=== PATIENT | male | born 1940 | race Caucasian/White ===

== ENCOUNTER 2016-06-15 07:06 | Outpatient (CLI) | payer MEDICARE | END 2016-06-15 07:07 | disposition home or self-care (01) | DX: E78.5 Hyperlipidemia, unspecified (principal); Z79.899 Other long term (current) drug therapy ==

== ENCOUNTER 2016-08-24 07:03 | Outpatient (CLI) | payer MEDICARE | END 2016-08-24 07:04 | disposition home or self-care (01) | DX: E78.2 Mixed hyperlipidemia (principal); Z79.899 Other long term (current) drug therapy ==

== ENCOUNTER 2017-03-29 08:10 | Outpatient (CLI) | payer MEDICARE ==
[2017-03-29 12:18] LABS: BASOPHILS % (AUTO) 0.7 %; EOSINOPHILS # (AUTO) 0.2 10^3/uL (0.0-0.7); EOSINOPHILS % (AUTO) 4.8 %; HCT - HEMATOCRIT 41.7 % (42.0-52.0); HGB - HEMOGLOBIN 14.6 g/dL (14.0-18.0); LYMPHOCYTES # (AUTO) 1.3 10^3/uL (1.5-3.5); LYMPHOCYTES % (AUTO) 25.8 %; MEAN CORPUSCULAR HEMOGLOBIN 33.3 pg (27.0-31.0); MEAN CORPUSCULAR VOLUME 95.1 fL (80.0-94.0); MEAN PLATELET VOLUME 7.7 fL (7.4-11.4); MONOCYTES # (AUTO) 0.4 10^3/uL (0.0-1.0); MONOCYTES % (AUTO) 7.5 %; NEUTROPHILS % (AUTO) 61.2 %; NUCLEATED RED BLOOD CELLS AUTO 0.1 /100WBC; RED BLOOD COUNT 4.39 10^6/uL (4.70-6.10); RED CELL DISTRIBUTION WIDTH 12.9 % (12.0-15.0); UNCORRECTED WHITE BLOOD COUNT 4.9 x10^3/uL; WHITE BLOOD COUNT 4.9 x10^3/uL (4.8-10.8)
[2017-03-29 12:27] LABS: ALBUMIN/GLOBULIN RATIO 1.5 (1.0-2.2); BILIRUBIN,TOTAL 0.8 mg/dL (0.2-1.0); BUN - BLOOD UREA NITROGEN 20 mg/dL (6-20); CALCIUM 9.2 mg/dL (8.5-10.3); CARBON DIOXIDE - CO2 29 mmol/L (21-32); CHLORIDE 100 mmol/L (101-111); CHOL/HDL RATIO 4.5 (<5.0); CHOLESTEROL 272 mg/dL; GFR - MDRD 73 (>89); GLUCOSE 118 mg/dL (70-100); HDL CHOLESTEROL 61 mg/dL; LDL/HDL RATIO 3.2 (<3.6); POTASSIUM 3.9 mmol/L (3.5-5.0); SODIUM 136 mmol/L (135-145); TOTAL PROTEIN 7.6 g/dL (6.7-8.2); TRIGLYCERIDES 89 mg/dL; VLDL CHOLESTEROL 18 mg/dL
[2017-03-29 12:55] LABS: HEMOGLOBIN A1C 0.55 g/dL
== END 2017-03-29 08:11 | disposition home or self-care (01) ==
LOC: LAB.F 08:10
PROVIDERS: ATTEND Internal Medicine
DX: I10 Essential (primary) hypertension (principal); D64.9 Anemia, unspecified; R73.9 Hyperglycemia, unspecified; E78.5 Hyperlipidemia, unspecified
CPT/HCPCS: 36415; 80053; 80061; 83036; 84443; 85025

== ENCOUNTER 2017-06-14 07:31 | Outpatient (CLI) | payer MEDICARE | END 2017-06-14 07:32 | disposition home or self-care (01) | LOC: LAB.F 07:31 | PROVIDERS: ATTEND Internal Medicine | DX: E78.5 Hyperlipidemia, unspecified (principal) | CPT/HCPCS: 36415; 83721 ==

== ENCOUNTER 2017-09-27 13:21 | Day surgery (SDC) | payer MEDICARE ==
[2017-09-27] MEDS ORDERED: LACTATED RINGERS 1,000 ML IV ONE (13:53)
[2017-09-27] MEDS ORDERED: MIDAZOLAM 2 MG/2 ML VIAL IVP ONE (13:56)
[2017-09-27] MEDS ORDERED: fentaNYL 250 MCG/5 ML VIAL IVP ONE (13:56)
--- NOTE | 2017-09-27 14:07 | HISTORY & PHYSICAL EXAMINATION ---
PMH/PSH - Past Medical History Cardiovascular: positive: Hypertension, High cholesterol Respiratory: positive: Asthma, COPD, Other Endocrine/Autoimmune: positive: None GI: positive: Other : positive: None HEENT: positive: Other Psych: positive: Bipolar disorder Musculoskeletal: positive: None Derm: positive: None MRSA Hx?: No - Past Surgical History General: positive: Colonoscopy Meds/Allgy - Home Medications Home Medications: Ambulatory Orders Medication Instructions Recorded Confirmed Albuterol Sulfate [Proair Hfa 1 - 2 puffs INH Q4H PRN 03/10/16 03/10/16 Inhaler] Aspirin [Aspir-Low] 81 mg PO DAILY 03/10/16 03/10/16 Gabapentin 100 mg PO ONCE 03/10/16 03/10/16 Losartan [Cozaar] 25 mg PO DAILY 03/10/16 03/10/16 [place]-3/Dha/Epa/Fish Oil [[place] 3 1 tab PO DAILY 03/10/16 03/10/16 500 Softgel] Rosuvastatin Calcium [Crestor] 5 mg PO ONCE 03/10/16 03/10/16 [place] 160 mg PO DAILY 03/10/16 03/10/16 Ubidecarenone [Co Q-10] 100 mg PO DAILY 03/10/16 03/10/16 hydroCHLOROthiazide 25 mg PO DAILY 03/10/16 03/10/16 [Hydrochlorothiazide] - Allergies Allergies/Adverse Reactions: Allergies Allergy/AdvReac Type Severity Reaction Status Date / Time No Known Drug Allergies Allergy Verified 03/10/16 09:07 Exam - Vital Signs Vital Signs: Vital Signs x48h Temp Pulse Resp BP Pulse Ox 09/27/17 13:30 36.8 C 89 19 145/96 H 97 Impression/Plan - Problem List Problem List: Dr. Cheng Waters initially sent to 77-year-old male to my office in consultation for hematochezia back on August 03, 2017. Because the patient scheduled the procedure out more than 30 days from the time that he was evaluated this update history and physical is mandated. Since August 12 until now there have been no significant changes in his history and physical. Long story short he had a tubular adenoma removed back in 2014 and recommendation was made for repeat colonoscopy in 5 years. Additionally I have treated him in the past for anal fissures and I will relook at the area today. He describes his bowel movements as regular and normal. He denies nausea, vomiting, constipation, diarrhea, melena, hematochezia, hematemesis, abdominal pain, unexplained weight loss, or change in the color, character or caliber of his stool. His last colonoscopy was performed [address] Delia Zheng of the [facility] medical group using 2 mg of midazolam plus "EGD meds." A small sessile polyp was found in the transverse colon measuring 4 mm in size and was removed using a cold snare resection and retrieval were complete. Additionally some scattered diverticulosis was found in the sigmoid colon. Retroflexed view also showed internal hemorrhoids. The pathology on the polyp turned out to be a tubular adenoma. Current Allergies: No Known Allergies Current Meds: SUPREP BOWEL PREP KIT 17.5-3.13-1.6 GM/180ML ORAL SOLUTION (NA SULFATE-K SULFATE -MG SULF) Take one (6oz) bottle by mouth the PM before colonoscopy & one (6oz) bottle by mouth the AM of colonoscopy as directed by surgical clinic COQ10 100 MG ORAL CAPSULE (COENZYME Q10) Take 1 tab by mouth daily ASPIRIN EC 81 MG ORAL TABLET DELAYED RELEASE (ASPIRIN) Take one tablet by mouth once daily with food B-12 1000 MCG ORAL CAPSULE (CYANOCOBALAMIN) Take 1 tab by mouth daily D 1999 2000 UNIT ORAL TABLET (CHOLECALCIFEROL) Take 1 tab by mouth daily ROSUVASTATIN CALCIUM 10 MG ORAL TABLET (ROSUVASTATIN CALCIUM) Take one tablet by mouth every evening for high cholesterol LOSARTAN POTASSIUM 25 MG ORAL TABLET (LOSARTAN POTASSIUM) Take one tablet by mouth once daily for high blood pressure HYDROCHLOROTHIAZIDE 12.5 MG ORAL CAPSULE (HYDROCHLOROTHIAZIDE) Take one tablet by mouth every morning GABAPENTIN 300 MG ORAL CAPSULE (GABAPENTIN) Take one capsule by mouth twice daily Past Medical History: Bipolar disorder (ICD-296.80) (EYT36-S11.9) Diverticulosis (ICD-562.10) (FUS83-H12.90) Hyperlipidemia (ICD-272.4) (VWE25-C02.5) Asthma (ICD-493.90) (JHF59-L66.909) Hypertension Family History Summary: Mother (biol.) - Has Family History of Heart Disease - Entered On: 02/10/2016 Brother (full) - Has Family History of Diabetes - Entered On: 02/10/2016 Risk Factors: Smoked Tobacco Use: Former smoker Cigarettes: Yes Year quit: 1940 Years Since Last Quit: 78 Alcohol use: no Exercise: yes Review of Systems CONSTITUTIONAL: No weight loss, fever, chills, weakness or fatigue. HEENT: Eyes: No visual loss, blurred vision, double vision or yellow sclerae. Ears, Nose, Throat: No hearing loss, sneezing, congestion, runny nose or sore throat. SKIN: No rash or itching. CARDIOVASCULAR: No chest pain, chest pressure or chest discomfort. No palpitations or edema. RESPIRATORY: No shortness of breath, cough or sputum. GASTROINTESTINAL: No anorexia, nausea, vomiting or diarrhea. No abdominal pain or blood. GENITOURINARY: No dysuria. No impotence. NEUROLOGICAL: No headache, dizziness, syncope, paralysis, ataxia, numbness or tingling in the extremities. No change in bowel or bladder control. MUSCULOSKELETAL: No muscle, back pain, joint pain or stiffness. HEMATOLOGIC: No anemia, bleeding or bruising. LYMPHATICS: No enlarged nodes. No history of splenectomy. PSYCHIATRIC: No history of depression or anxiety. ENDOCRINOLOGIC: No reports of sweating, cold or heat intolerance. No polyuria or polydipsia. ALLERGIES: No history of asthma, hives, eczema or rhinitis. Physical Exam General: 77-year old male evaluated in Bed 3 [facility], appears stated age, well developed, well nourished, at bedside HEENT: Normocephalic, atraumatic, extraocular movement intact, mucous membranes pink and moist, sclera anicteric and not injected, male pattern baldness, [place] almost white hair Neck: Supple without pain on palpation, mass or bruit Cardiac: Regular rate and rhythm without rub, gallop, or murmur Chest: Clear to auscultation bilaterally Abdomen: Soft, nontender, normoactive bowel sounds, no hepatomegaly, no splenomegaly Genitourinary: Deferred Rectal: Deferred until colonoscopy Extremities: No gross neurovascular problem, no clubbing, cyanosis or edema Gait: No gross motor deficit Psychiatric: Alert and oriented to person place and time, asks and answers questions appropriately, mood and affect appropriate Impression & Recommendations: Screening colonoscopy with possible biopsies and/or polypectomies. Indications , procedure, alternatives (such as barium enema, Cologuard and even no procedure at all) and risks including but not limited to perforation requiring operative repair, bleeding with its risks, and were fully explained to him. In the office, I jony diagrams explaining the colonic anatomy and the proposed procedure and handed it to him. In the office, conscious sedation was discussed at length with him as were its risks including but not limited to loss of airway, aspiration, respiratory depression, and not enough relief of pain and anxiety and he indicated that he wished to have conscious sedation for his procedure. In the office, I explained that MAC anesthesia is associated with a higher incidence of colon perforation. Review of his history does not reveal any significant systemic disease that would contraindicate use of conscious sedation or MAC anesthesia. All questions were fully answered. Verbal and written consent was obtained. The patient in preparation for his colonoscopy has been n.p.o. and his colon has been mechanically prepped. 25 minutes of fugb-gn-shzu time spent with the patient the majority of which was spent in discussion and in the generation of this document
[2017-09-27 15:08] VITALS: BP 115/79
== END 2017-09-27 13:22 | disposition home or self-care (01) ==
LOC: SDS 13:21
PROVIDERS: ATTEND Surgery
PROC: 0DJD8ZZ Inspection of Lower Intestinal Tract, Via Natural or Artificial Opening Endoscopic (ICD-10-PCS; principal; 2017-09-27 14:00)
DX: K92.1 Melena (principal); K57.30 Diverticulosis of large intestine without perforation or abscess without bleeding; K64.8 Other hemorrhoids; I10 Essential (primary) hypertension; J44.9 Chronic obstructive pulmonary disease, unspecified; Z79.82 Long term (current) use of aspirin; E78.5 Hyperlipidemia, unspecified; Z87.891 Personal history of nicotine dependence; Z86.010 Personal history of colon polyps
CPT/HCPCS: 45378; J3010; J7120

== ENCOUNTER 2017-11-22 10:11 | Outpatient (CLI) | payer MEDICARE ==
--- NOTE | 2017-11-22 12:18 | XRAY Report ---
Procedure Date: 11/22/2017 Accession Number: [id number] / [id number] Procedure: FL - Modified Barium Swallow W/SP CPT Code: FULL RESULT: EXAM: Modified Barium Swallow W/SP DATE: 11/22/2017 10:50 AM CLINICAL HISTORY: DYSPHAGIA COMPARISON: None. TECHNIQUE: Under the direction of speech pathology, patient swallowed various consistencies of barium under lateral fluoroscopic observation of the neck. Fluoroscopic exposure time: 48 seconds . Number of fluoroscopic images: 1. Cine fluoroscopy recorded. FINDINGS: Airway Protection: Normal epiglottic motion. No episodes of tracheal penetration or aspiration with all consistencies of barium. Other: Zenker's diverticulum identified. Please also refer to full report from Speech Pathology. IMPRESSION: No aspiration or penetration seen. 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 RADIA
== END 2017-11-22 10:12 | disposition home or self-care (01) ==
LOC: DI 10:11
PROVIDERS: ATTEND Internal Medicine
DX: K22.5 Diverticulum of esophagus, acquired (principal)
CPT/HCPCS: 74230

== ENCOUNTER 2018-02-28 09:33 | Outpatient (CLI) | payer MEDICARE | END 2018-02-28 09:34 | disposition home or self-care (01) | LOC: RT 09:33 | PROVIDERS: ATTEND Internal Medicine | DX: J44.9 Chronic obstructive pulmonary disease, unspecified (principal) | CPT/HCPCS: 94060 ==

== ENCOUNTER 2018-04-20 07:37 | Outpatient (CLI) | payer MEDICARE ==
[2018-04-20 13:18] LABS: BASOPHILS % (AUTO) 0.1 %; EOSINOPHILS # (AUTO) 0.1 10^3/uL (0.0-0.7); EOSINOPHILS % (AUTO) 2.4 %; LYMPHOCYTES # (AUTO) 1.1 10^3/uL (1.5-3.5); LYMPHOCYTES % (AUTO) 24.3 %; MEAN CORPUSCULAR HEMOGLOBIN 34.7 pg (27.0-31.0); MEAN CORPUSCULAR HGB CONC 35.5 g/dL (32.0-36.0); MEAN CORPUSCULAR VOLUME 97.7 fL (80.0-94.0); MEAN PLATELET VOLUME 8.3 fL (7.4-11.4); MONOCYTES # (AUTO) 0.3 10^3/uL (0.0-1.0); MONOCYTES % (AUTO) 6.3 %; NEUTROPHILS # (AUTO) 3.1 10^3/uL (1.5-6.6); NEUTROPHILS % (AUTO) 66.9 %; PLT - PLATELET COUNT 196 10^3/uL (130-450); RED BLOOD COUNT 4.33 10^6/uL (4.70-6.10); RED CELL DISTRIBUTION WIDTH 12.4 % (12.0-15.0); WHITE BLOOD COUNT 4.6 x10^3/uL (4.8-10.8)
[2018-04-20 13:19] LABS: ALBUMIN 4.4 g/dL (3.2-5.5); ALBUMIN/GLOBULIN RATIO 1.3 (1.0-2.2); ALKALINE PHOSPHATASE 68 IU/L (42-121); ALT ALANINE AMINOTRANSFERASE 30 IU/L (10-60); AST ASPARTATE AMINOTRANSFERASE 29 IU/L (10-42); BILIRUBIN,TOTAL 1.2 mg/dL (0.2-1.0); BUN - BLOOD UREA NITROGEN 24 mg/dL (6-20); CALCIUM 9.1 mg/dL (8.5-10.3); CARBON DIOXIDE - CO2 29 mmol/L (21-32); CHLORIDE 100 mmol/L (101-111); CHOL/HDL RATIO 2.8 (<5.0); CHOLESTEROL 209 mg/dL; CREATININE 0.9 mg/dL (0.6-1.2); GFR - MDRD 82 (>89); GLUCOSE 127 mg/dL (70-100); HDL CHOLESTEROL 75 mg/dL; LDL CHOLESTEROL,CALCULATED 124 mg/dL; LDL/HDL RATIO 1.7 (<3.6); SODIUM 135 mmol/L (135-145); TOTAL PROTEIN 7.7 g/dL (6.7-8.2); VLDL CHOLESTEROL 10 mg/dL
[2018-04-20 13:23] LABS: HB2 TOTAL 15.8 g/dL; HEMOGLOBIN A1C 0.52 g/dL; HEMOGLOBIN A1C % 5.2 % (4.6-6.2)
== END 2018-04-20 07:38 | disposition home or self-care (01) ==
LOC: LAB.F 07:37
PROVIDERS: ATTEND Internal Medicine
DX: I10 Essential (primary) hypertension (principal); D64.9 Anemia, unspecified; R73.9 Hyperglycemia, unspecified; E78.5 Hyperlipidemia, unspecified
CPT/HCPCS: 36415; 80053; 80061; 83036; 83721; 85025

== ENCOUNTER 2020-09-02 10:13 | Outpatient (CLI) | payer MEDICARE ==
--- NOTE | 2020-09-02 17:15 | XRAY Report ---
PROCEDURE: Knee 3 View RT INDICATIONS: PAIN IN R KNEE TECHNIQUE: 3 views of the right knee(s) were acquired. COMPARISON: None. FINDINGS: Bones: No acute fractures or dislocations. Severe degenerative changes of the right knee involving a ll 3 joint compartments. There is near complete loss of the lateral compartment on weightbearing view s. Prominent marginal osteophyte formation. No suspicious bony lesions. Soft tissues: Small joint effusion. No suspicious soft tissue calcifications. Moderate vascular isatu cifications. IMPRESSION: Right knee without acute osseous abnormalities. Severe tricompartmental osteoarthrosis of the right knee with significant joint space loss of the lat eral compartment. Reviewed by: Barrington Martinez MD on 09/02/2020 4:13 PM [place] Approved by: Barrington Martinez MD on 09/02/2020 4:13 PM [place] Station ID: [id number]
== END 2020-09-02 10:14 | disposition home or self-care (01) ==
LOC: DI 10:13
PROVIDERS: ATTEND Family Medicine
DX: M17.11 Unilateral primary osteoarthritis, right knee (principal)

== ENCOUNTER 2020-11-13 12:59 | Outpatient (CLI) | payer MEDICARE ==
--- NOTE | 2020-11-13 13:58 | XRAY Report ---
PROCEDURE: Knee 3 View LT INDICATIONS: LEFT KNEE INCREASING CHRONIC PAIN NO INJURY TECHNIQUE: 3 views of the left knee(s) were acquired. COMPARISON: Contralateral right knee radiographs 09/02/2018.. FINDINGS: Bones: No fractures or dislocations. Severe joint space narrowing most pronounced in the medial comp artment. Bipartite patella bone, variant anatomy. No suspicious bony lesions. Soft tissues: No joint effusion. No suspicious soft tissue calcifications. Vascular calcifications. IMPRESSION: Severe left knee DJD most pronounced in the medial compartment. Reviewed by: Jalen Ansari MD on 11/13/2020 1:57 PM PDT Approved by: Jalen Ansari MD on 11/13/2020 1:57 PM PDT Station ID: [id number]
== END 2020-11-13 13:00 | disposition home or self-care (01) ==
LOC: DI 12:59
PROVIDERS: ATTEND Family Medicine
DX: M17.12 Unilateral primary osteoarthritis, left knee (principal)

== ENCOUNTER 2021-06-30 08:00 | Outpatient (CLI) | payer MEDICARE ==
--- NOTE | 2021-07-01 11:09 | XRAY Report ---
PROCEDURE: Humerus RT INDICATIONS: PAIN IN UPPER RIGHT ARM TECHNIQUE: 2 views of the humerus were acquired. COMPARISON: None FINDINGS: Bones: No fractures or dislocations. No suspicious bony lesions. Soft tissues: No suspicious soft tissue calcifications. IMPRESSION: No fracture. No osseous lesion. If there are persistent symptoms or continued clinical concern for pa thology, then repeat plain film radiographs (7-10 days) or advanced imaging (CT, MR, bone scan) shoul d be considered for further evaluation. Reviewed by: Terri Poe MD, PhD on 07/01/2021 11:08 AM PST Approved by: Terri Poe MD, PhD on 07/01/2021 11:08 AM [facility] Station ID: [id number]
== END 2021-06-30 23:59 | disposition home or self-care (01) ==
LOC: DI.S 08:00
PROVIDERS: ATTEND Registered Nurse
DX: M79.671 Pain in right foot (principal)

== ENCOUNTER 2021-08-26 12:03 | Emergency (ER) | payer MEDICARE | END 2021-08-26 12:22 | disposition left against medical advice (07) | LOC: ED 12:03 | DX: Z53.21 Procedure and treatment not carried out due to patient leaving prior to being seen by health care provider (principal) ==

== ENCOUNTER 2021-08-27 10:45 | Emergency (ER) | payer MEDICARE ==
[2021-08-27 10:55] VITALS: BP 147/80
--- NOTE | 2021-08-27 11:24 | XRAY Report ---
PROCEDURE: Elbow 3 View LT INDICATIONS: Trauma TECHNIQUE: 3 views of the elbow were acquired. COMPARISON: None FINDINGS: Bones: No fractures or dislocations. No suspicious bony lesions. Particular osteophyte formation a t the elbow joint is present, indicating osteoarthritis. Soft tissues: No elbow joint effusion. No suspicious soft tissue calcifications. IMPRESSION: Osteoarthritis. No acute fracture. No osseous lesion. If symptoms and/or clinical suspicion for patho logy continue, further assessment with repeat plain films, or advanced imaging (e.g., CT, MRI, or bon e scan) is recommended for further assessment. Reviewed by: Renate Hogan MD on 08/27/2021 11:22 AM PDT Approved by: Renate Hogan MD on 08/27/2021 11:22 AM PDT Station ID: [id number]
[2021-08-27] MEDS ORDERED: CLINDAMYCIN 150 MG CAPSULE PO STA (11:52)
--- NOTE | 2021-08-27 11:52 | ED Physician Documentation ---
PD HPI UPPER EXT INJURY - Stated complaint Stated Complaint: L ARM SWELLING,REDNESS - Chief complaint Chief Complaint: Ext Problem - History obtained from History obtained from: Patient - Additonal information Additional information: Very healthy 81-year-old gentleman got banged by a ladder to the posterior left elbow about 3 weeks ago and has had progressive swelling and tenderness around there. He is already on Keflex for this without improvement. He denies fevers or chills. Review of Systems Constitutional: reports: Reviewed and negative. denies: Fever, Chills Eyes: reports: Reviewed and negative Ears: reports: Reviewed and negative Musculoskeletal: denies: Neck pain, Back pain PD PAST MEDICAL HISTORY - Past Medical History Cardiovascular: Hypertension, High cholesterol Respiratory: Asthma, COPD, Other Endocrine/Autoimmune: None GI: Other : None HEENT: Other Psych: Bipolar disorder Musculoskeletal: None Derm: None - Past Surgical History General: Colonoscopy - Present Medications Home Medications: Ambulatory Orders Medication Instructions Recorded Confirmed Albuterol Sulfate [Proair Hfa 1 - 2 puffs INH Q4H PRN 03/10/16 08/27/21 Inhaler] Gabapentin 300 mg PO BID 03/10/16 08/27/21 Losartan [Cozaar] 25 mg PO DAILY 03/10/16 08/27/21 hydroCHLOROthiazide 25 mg PO DAILY 03/10/16 08/27/21 [Hydrochlorothiazide] Escitalopram [Lexapro] 10 mg PO DAILY 08/27/21 08/27/21 Tamsulosin HCl [Flomax] 0.4 mg PO DAILY PM 08/27/21 08/27/21 clindamycin HCL [Cleocin HCl] 300 mg PO QID #40 cap 08/27/21 lamoTRIgine [LaMICtal] 100 mg PO BID 08/27/21 08/27/21 - Allergies Allergies/Adverse Reactions: Allergies Allergy/AdvReac Type Severity Reaction Status Date / Time No Known Drug Allergies Allergy Verified 08/27/21 10:50 PD ED PE NORMAL - Vitals Vital signs reviewed: Yes - General General: Alert and oriented X 3, No acute distress - Extremities Extremities: Other (He has an abrasion over the left olecranon. There is no swelling or olecranon bursitis. There is cellulitis to the anteromedial forearm though with some tenderness. Slightly limited range of motion at the elbow but not consistent with a septic joint. No axillary adenopathy on the left.) - Neuro Neuro: Alert and oriented X 3, Normal speech Results - Vitals Vitals: Vital Signs - 24 hr 08/27/21 10:50 Temperature 36.8 C Heart Rate 92 Respiratory 16 Rate Blood Pressure 147/80 H O2 Saturation 98 Oxygen O2 Source Room air - Rads (name of study) Three-view x-ray of the left elbow demonstrates some osteoarthritis but no acute trauma. Radiology: EMP read contemporaneously Departure - Departure Disposition: Home, Self Care Clinical Impression: Cellulitis of left forearm Condition: Good Record reviewed to determine appropriate education?: Yes Instructions: Cellulitis Dc Prescriptions: clindamycin HCL [Cleocin HCl] 300 mg PO QID #40 cap Comments: I sent your prescription electronically to [facility] in [place]. Return if worsening or if you develop a fever. Recheck with your doctor Wednesday or Wednesday. You can stop the prior antibiotic. You confirm that the prior antibiotic was Keflex/cephalexin which is what I based the antibiotic change on.
== END 2021-08-27 12:00 | disposition home or self-care (01) ==
LOC: ED 10:45
DX: L03.114 Cellulitis of left upper limb (principal); I10 Essential (primary) hypertension
CPT/HCPCS: 73080; 99282; 99283; A9270

== ENCOUNTER 2021-10-14 11:36 | Outpatient (CLI) | payer MEDICARE ==
--- NOTE | 2021-10-14 13:25 | CT Report ---
PROCEDURE: Abdomen/Pelvis WO INDICATIONS: DIARRHEA TECHNIQUE: Noncontrast 5 mm thick sections acquired from the diaphragms to the symphysis. 5 mm coronal and sagi ttal reformats were then performed. For radiation dose reduction, the following was used: automated exposure control, adjustment of mA and/or kV according to patient size. COMPARISON: None. FINDINGS: Image quality: Excellent. ABDOMEN: Lung bases: Lung bases are clear. Heart size is normal. Solid organs: Liver and spleen are normal in size. Gallbladder is unremarkable Pancreas is normal in contours. No adrenal nodules. Kidneys are normal in size, without hydronephrosis or nephrolithia sis. Peritoneum and bowel: Unenhanced bowel loops are nonobstructed. There is a diffuse appearance of col onic thickening with inflammatory change most severe in the descending colon no appreciable inflammat ory changes noted at the terminal ileum. Very minimal diverticula are noted. No free fluid or free ai r. Nodes and vessels: No retroperitoneal or mesenteric adenopathy by size criteria. Aorta and inferior vena cava are normal in caliber. Miscellaneous: No ventral hernias. PELVIS: Genitourinary: Bladder wall thickness is normal. Miscellaneous: No inguinal hernias or adenopathy. Bones: No suspicious bony lesions. No vertebral body compression fractures. IMPRESSION: Prominent diffuse colonic thickening with inflammatory change most severe in the right colon. Overall appearance is most consistent with colitis. Given lack of significant diverticula, etiology such as infection/inflammation/ischemia should be considered. Reviewed by: Jossy Justin MD on 10/14/2021 1:23 PM PDT Approved by: Jossy Justin MD on 10/14/2021 1:23 PM PDT Station ID: [id number]
[2021-10-15] MEDS ORDERED: DIATR MEGLU/DIATRIZOATE SODIUM 120 ML BOTTLE PO ONE (07:37)
== END 2021-10-14 11:37 | disposition home or self-care (01) ==
LOC: DI 11:36
PROVIDERS: ATTEND Nurse Practitioner Family
DX: K52.9 Noninfective gastroenteritis and colitis, unspecified (principal)
CPT/HCPCS: 74176; Q9963

== ENCOUNTER 2021-12-15 11:48 | Outpatient (CLI) | payer MEDICARE | END 2021-12-15 11:49 | disposition home or self-care (01) | LOC: DI 11:48 | PROVIDERS: ATTEND Internal Medicine Cardiovascular Disease | DX: R60.9 Edema, unspecified (principal); R01.1 Cardiac murmur, unspecified; I51.7 Cardiomegaly; I77.819 Aortic ectasia, unspecified site | CPT/HCPCS: 93306 ==

== ENCOUNTER 2022-01-25 11:14 | Outpatient (CLI) | payer MEDICARE | END 2022-01-25 11:15 | disposition EMS.NT | LOC: EMS 11:14 | DX: Z03.89 Encounter for observation for other suspected diseases and conditions ruled out (principal) ==

== ENCOUNTER 2022-02-06 09:55 | Outpatient (CLI) | payer MEDICARE | END 2022-02-06 09:56 | disposition critical access hospital (66) | LOC: EMS 09:55 | DX: R53.1 Weakness (principal); R50.9 Fever, unspecified; R41.0 Disorientation, unspecified; M79.89 Other specified soft tissue disorders; R39.89 Other symptoms and signs involving the genitourinary system; W10.8XXA Fall (on) (from) other stairs and steps, initial encounter; Y92.009 Unspecified place in unspecified non-institutional (private) residence as the place of occurrence of the external cause | CPT/HCPCS: A0425; A0427 ==

== ENCOUNTER 2022-02-06 10:30 | Inpatient (IN) | payer MEDICARE ==
[2022-02-06] MEDS ORDERED: ONDANSETRON 4 MG/2 ML VIAL IVP STA (10:45)
[2022-02-06] MEDS ORDERED: ACETAMINOPHEN 325 MG TABLET PO STA ×2 (10:45→15:39)
[2022-02-06] MEDS ORDERED: IBUPROFEN 600 MG TABLET PO STA (10:45)
[2022-02-06] MEDS ORDERED: SODIUM CHLORIDE 0.9% 1,000 ML IV STA ×2 (10:45→12:11)
[2022-02-06 11:05] LABS: BASOPHILS % (AUTO) 0.1 %; HCT - HEMATOCRIT 32.6 % (42.0-52.0); HGB - HEMOGLOBIN 11.2 g/dL (14.0-18.0); LYMPHOCYTES # (AUTO) 0.2 10^3/uL (1.5-3.5); LYMPHOCYTES % (AUTO) 3.1 %; MEAN CORPUSCULAR HEMOGLOBIN 33.3 pg (27.0-31.0); MEAN CORPUSCULAR HGB CONC 34.4 g/dL (32.0-36.0); MEAN PLATELET VOLUME 8.6 fL (7.4-11.4); MONOCYTES # (AUTO) 0.3 10^3/uL (0.0-1.0); MONOCYTES % (AUTO) 3.7 %; NEUTROPHILS # (AUTO) 7.2 10^3/uL (1.5-6.6); NEUTROPHILS % (AUTO) 92.6 %; PLT - PLATELET COUNT 222 10^3/uL (130-450); RED BLOOD COUNT 3.36 10^6/uL (4.70-6.10); WHITE BLOOD COUNT 7.8 x10^3/uL (4.8-10.8)
[2022-02-06 11:18] LABS: ALBUMIN 4.1 g/dL (3.2-5.5); ALBUMIN/GLOBULIN RATIO 1.1 (1.0-2.2); BILIRUBIN,TOTAL 0.8 mg/dL (0.2-1.0); CALCIUM 9.6 mg/dL (8.5-10.3); CREATININE 1.4 mg/dL (0.6-1.2); POTASSIUM 3.7 mmol/L (3.5-5.0); TOTAL PROTEIN 7.7 g/dL (6.7-8.2)
[2022-02-06 11:54] LABS: B. PARAPERTUSSIS- RESP PCR PAN NOT DETECTED; B. PERTUSSIS- RESP PCR PANEL NOT DETECTED; C. PNEUMONIAE- RESP PCR PANEL NOT DETECTED; CORONAVIRUS 229E-RESP PCR NOT DETECTED; CORONAVIRUS HKU1-RESP PCR NOT DETECTED; CORONAVIRUS NL63-RESP PCR NOT DETECTED; CORONAVIRUS OC43-RESP PCR NOT DETECTED; HUMAN METAPNEUMOVIRUS NOT DETECTED; INFLUENZA A- RESP PCR PANEL NOT DETECTED; INFLUENZA B - RESP PCR PANEL NOT DETECTED; M. PNEUMONIAE- RESP PCR PANEL NOT DETECTED; PARAINFLUENZA VIRUS 1 NOT DETECTED; PARAINFLUENZA VIRUS 2 NOT DETECTED; PARAINFLUENZA VIRUS 3 NOT DETECTED; PARAINFLUENZA VIRUS 4 NOT DETECTED; RHINOVIRUS/ENTEROVIRUS NOT DETECTED; RSV- RESP PCR PANEL NOT DETECTED; SARS-CoV-2 -RESP PCR PANEL NOT DETECTED
--- NOTE | 2022-02-06 12:08 | CT Report ---
PROCEDURE: HEAD WO INDICATIONS: aloc TECHNIQUE: Noncontrast 4.5 mm thick angled axial sections acquired from the foramen magnum to the vertex. For r adiation dose reduction, the following was used: automated exposure control, adjustment of mA and/or kV according to patient size. COMPARISON: None. FINDINGS: Image quality: Excellent. The ventricular system and cortical sulci demonstrate atrophy, consistent for patient's stated age. There are areas of hypodensity in the periventricular and subcortical white matter. There is no acut e intra or extra-axial fluid collection. No acute hemorrhage, mass lesion or midline shift. Brainst em is unremarkable. Globes are symmetrical. Sinuses demonstrate minimal mucosal thickening. Partially visualized small mu cous retention cyst versus polyp is present in the right maxillary sinus. Osseous structures are inta ct. IMPRESSION: 1. No acute intracranial process. 2. Mild to moderate atrophy and chronic microvascular ischemic changes. Reviewed by: Jossy Justin MD on 02/06/2022 12:06 PM PDT Approved by: Jossy Justin MD on 02/06/2022 12:06 PM PDT Station ID: [id number]
[2022-02-06 14:00] LABS: BILIRUBIN,URINE NEGATIVE (NEGATIVE); GLUCOSE, URINE (UA) NEGATIVE (NEGATIVE); KETONES,URINE (UA) NEGATIVE (NEGATIVE); LEUKOCYTE ESTERASE, URINE NEGATIVE (NEGATIVE); NITRITE,URINE NEGATIVE (NEGATIVE); OCCULT BLOOD,URINE LARGE (NEGATIVE); PROTEIN,URINE 30 mg/dL (NEGATIVE); UROBILINOGEN,URINE 0.2 (NORMAL) E.U./dL (NORMAL)
[2022-02-06 14:03] LABS: CLARITY,URINE HAZY (CLEAR)
[2022-02-06 14:13] LABS: BACTERIA,URINE Rare /HPF (None Seen); MUCUS,URINE Moderate Strands; RBC,URINE 0-5 /HPF (0-5); SQUAMOUS EPITHELIAL CELL,UR RARE Squamous (<= Few); WBC,URINE 0-3 /HPF (0-3)
--- NOTE | 2022-02-06 14:17 | XRAY Report ---
PROCEDURE: Chest 1 View X-Ray INDICATIONS: chest pain TECHNIQUE: One view of the chest was acquired. COMPARISON: None FINDINGS: Surgical changes and devices: None. Lungs and pleura: No pleural effusions or pneumothorax. Lungs are clear. Mediastinum: Mediastinal contours appear normal. Heart size is enlarged. Bones and chest wall: No suspicious bony lesions. Overlying soft tissues appear unremarkable. IMPRESSION: No acute pulmonary process. Reviewed by: Jossy Justin MD on 02/06/2022 2:16 PM PDT Approved by: Jossy Justin MD on 02/06/2022 2:16 PM PDT Station ID: [id number]
[2022-02-06] MEDS ORDERED: cefTRIAXone 2 GM in SODIUM CHLORIDE 0.9% MINIBAG 100 ML IV STA (15:39)
--- NOTE | 2022-02-06 17:16 | ED Physician Documentation ---
PD HPI ALTERED MENTAL STATUS - Stated complaint Stated Complaint: AMS - Chief complaint Chief Complaint: Fever - History obtained from History obtained from: Patient, Friend, EMS - Additional information Additional information: Patient sent to the emergency department by EMS for chief complaint of altered mental status for the last couple of days, falls, and fever. The patient's friend Rosa, on whose property he lives, states that he has not seen like himself for the last couple of days. He seems somewhat confused and like he was not as steady on his feet as usual. Rosa called EMS and they were unable to get the stretcher into the patient small cabin, so the patient had to walk downstairs to the stretcher, which she thought he could do. However, while walking, he fell. The medics were able to catch him and he was not injured, but he was not strong enough to continue walking. The medics state they got a temperature in route of 104. His blood sugar was normal. Medics did note the patient vomited in route. The patient denies any specific complaints. He states he feels like he is just cold all the time, but denies any nausea, vomiting, cough, shortness of breath, abdominal pain, or chest pain. He has some swelling of his right lower extremity which he states he has already had evaluated on a couple of occasions and does not have a DVT. He states the color and size of the leg are at baseline. No sore throat or rhinorrhea. No other complaints at this time. Review of Systems Ten Systems: 10 systems reviewed and negative Constitutional: reports: Fever, Chills Eyes: reports: Reviewed and negative Ears: reports: Reviewed and negative Nose: reports: Reviewed and negative Throat: reports: Reviewed and negative Cardiac: reports: Reviewed and negative Respiratory: reports: Reviewed and negative GI: reports: Reviewed and negative : reports: Reviewed and negative Skin: reports: Reviewed and negative Musculoskeletal: reports: Reviewed and negative Neurologic: reports: Generalized weakness Psychiatric: reports: Reviewed and negative Endocrine: reports: Reviewed and negative Immunocompromised: reports: Reviewed and negative PD PAST MEDICAL HISTORY - Past Medical History Past Medical History: Yes Cardiovascular: Hypertension, High cholesterol Respiratory: Asthma, COPD, Other Endocrine/Autoimmune: None GI: Other : None HEENT: Other Psych: Bipolar disorder Musculoskeletal: None Derm: None - Past Surgical History General: Colonoscopy - Present Medications Home Medications: Ambulatory Orders Medication Instructions Recorded Confirmed Albuterol Sulfate [Proair Hfa 1 - 2 puffs INH Q4H PRN 03/10/16 10/25/21 Inhaler] Escitalopram [Lexapro] 10 mg PO DAILY 08/27/21 10/25/21 Tamsulosin HCl [Flomax] 0.4 mg PO DAILY PM 08/27/21 10/25/21 lamoTRIgine [LaMICtal] 100 mg PO BID 08/27/21 10/25/21 Gabapentin [Neurontin] 300 mg PO QPM 10/25/21 10/25/21 Tadalafil [Cialis] 5 - 20 mg PO DAILY PRN 10/25/21 10/25/21 Meloxicam [Mobic] 15 mg PO DAILY PRN #15 tab 11/03/21 Potassium Chloride [K-Dur] 40 meq PO DAILYWM #8 tablet 11/03/21 Psyllium [Metamucil] 1 packet PO DAILY #7 packet 11/03/21 Simethicone [Mylicon] 80 mg PO 0900,1300,1800,2100 PRN 11/03/21 #16 tablet Vancomycin [Vancocin] 125 mg PO QID #16 cap 11/03/21 Zinc Sulfate 220 mg PO DAILY 11/03/21 - Allergies Allergies/Adverse Reactions: Allergies Allergy/AdvReac Type Severity Reaction Status Date / Time No Known Drug Allergies Allergy Verified 10/24/21 12:11 - Social History Does the pt smoke?: No Smoking Status: Never smoker Does the pt drink ETOH?: Yes Does the pt have substance abuse?: No PD ED PE NORMAL - Vitals Vital signs reviewed: Yes - General General: No acute distress, Well developed/nourished, Other (The patient is oriented to self. He knows he is at the hospital. He is not sure what year it is.) - HEENT HEENT: Atraumatic, PERRL, EOMI, Moist mucous membranes - Neck Neck: Supple, no meningeal sign - Cardiac Cardiac: RRR, No murmur, Strong equal pulses - Respiratory Respiratory: No respiratory distress, Clear bilaterally - Abdomen Abdomen: Soft, Non tender, Non distended - Derm Derm: Normal color, Warm and dry, No rash - Extremities Extremities: No deformity, Other (1+ pitting edema right lower leg. No calf tenderness. 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, Normal speech - Psych Psych: Normal mood, Normal affect Results - Vitals Vitals: Vital Signs - 24 hr 02/06/22 02/06/22 02/06/22 10:37 11:11 12:54 Temperature 40.2 C H 37.2 C Heart Rate 105 H 106 H 94 Respiratory 27 H 29 H 18 Rate Blood Pressure 160/90 H 156/89 H 120/65 O2 Saturation 97 93 95 02/06/22 02/06/22 14:00 15:50 Temperature 36.3 C L Heart Rate 73 63 Respiratory 17 13 Rate Blood Pressure 122/66 120/77 O2 Saturation 96 99 Oxygen O2 Source Room air - EKG (time done) 1036 Rate: Rate (enter#) Rhythm: Sinus tachycardia [place]: Normal Intervals: Prolonged CT (borderline) QRS: LVH Ischemia: Normal ST segments Compare to prior EKG: Old EKG unavailable Computer interpretation: Agree with computer - Labs Labs: Laboratory Tests 02/06/22 02/06/22 02/06/22 10:52 10:52 10:52 WBC 7.8 RBC 3.36 L Hgb 11.2 L Hct 32.6 L MCV 97.0 H MCH 33.3 H MCHC 34.4 RDW 13.0 Plt Count 222 MPV 8.6 Neut # (Auto) 7.2 H Lymph # (Auto) 0.2 L [place] # (Auto) 0.3 Eos # (Auto) 0.0 Baso # (Auto) 0.0 Absolute Nucleated RBC 0.00 Nucleated RBC % 0.0 Sodium 136 Potassium 3.7 Chloride 98 L Carbon Dioxide 27 Anion Gap 11.0 BUN 31 H Creatinine 1.4 H Estimated GFR (MDRD) 49 L Glucose 155 H Lactic Acid 2.3 H Calcium 9.6 Total Bilirubin 0.8 AST 41 ALT 20 Alkaline Phosphatase 62 Total Protein 7.7 Albumin 4.1 Globulin 3.6 Albumin/Globulin Ratio 1.1 Lipase 27 Urine Color Urine Clarity Urine pH Ur Specific [place] Urine Protein Urine Glucose (UA) Urine Ketones Urine Occult Blood Urine Nitrite Urine Bilirubin Urine Urobilinogen Ur Leukocyte Esterase Urine RBC Urine WBC Ur Squamous Epith Cells Urine Bacteria Urine Mucus Ur Microscopic Review Urine Culture Comments Nasal Adenovirus (PCR) Nasal B. parapertussis DNA (PCR) Nasal Coronavir 229E PCR Nasal Coronavir HKU1 PCR Nasal Coronavir NL63 PCR Nasal Coronavir OC43 PCR Nasal Enterovir/Rhinovir PCR Nasal Influenza B PCR Nasal Influenza A PCR Nasal Parainfluen 1 PCR Nasal Parainfluen 2 PCR Nasal Parainfluen 3 PCR Nasal Parainfluen 4 PCR Nasal RSV (PCR) Nasal B.pertussis DNA PCR Nasal C.pneumoniae (PCR) Galo Human Metapneumo PCR Nasal M.pneumoniae (PCR) Nasal SARS-CoV-2 (PCR) Ethyl Alcohol 02/06/22 02/06/22 02/06/22 10:52 10:55 13:45 WBC RBC Hgb Hct MCV MCH MCHC RDW Plt Count MPV Neut # (Auto) Lymph # (Auto) [place] # (Auto) Eos # (Auto) Baso # (Auto) Absolute Nucleated RBC Nucleated RBC % Sodium Potassium Chloride Carbon Dioxide Anion Gap BUN Creatinine Estimated GFR (MDRD) Glucose Lactic Acid Calcium Total Bilirubin AST ALT Alkaline Phosphatase Total Protein Albumin Globulin Albumin/Globulin Ratio Lipase Urine Color YELLOW Urine Clarity HAZY Urine pH 6.0 Ur Specific [place] 1.025 Urine Protein 30 H Urine Glucose (UA) NEGATIVE Urine Ketones NEGATIVE Urine Occult Blood LARGE H Urine Nitrite NEGATIVE Urine Bilirubin NEGATIVE Urine Urobilinogen 0.2 (NORMAL) Ur Leukocyte Esterase NEGATIVE Urine RBC 0-5 Urine WBC 0-3 Ur Squamous Epith Cells RARE Squamous Urine Bacteria Rare Urine Mucus Moderate Strands Ur Microscopic Review INDICATED Urine Culture Comments NOT INDICATED Nasal Adenovirus (PCR) NOT DETECTED Nasal B. parapertussis DNA (PCR) NOT DETECTED Nasal Coronavir 229E PCR NOT DETECTED Nasal Coronavir HKU1 PCR NOT DETECTED Nasal Coronavir NL63 PCR NOT DETECTED Nasal Coronavir OC43 PCR NOT DETECTED Nasal Enterovir/Rhinovir PCR NOT DETECTED Nasal Influenza B PCR NOT DETECTED Nasal Influenza A PCR NOT DETECTED Nasal Parainfluen 1 PCR NOT DETECTED Nasal Parainfluen 2 PCR NOT DETECTED Nasal Parainfluen 3 PCR NOT DETECTED Nasal Parainfluen 4 PCR NOT DETECTED Nasal RSV (PCR) NOT DETECTED Nasal B.pertussis DNA PCR NOT DETECTED Nasal C.pneumoniae (PCR) NOT DETECTED Galo Human Metapneumo PCR NOT DETECTED Nasal M.pneumoniae (PCR) NOT DETECTED Nasal SARS-CoV-2 (PCR) NOT DETECTED Ethyl Alcohol < 5.0 02/06/22 15:55 WBC RBC Hgb Hct MCV MCH MCHC RDW Plt Count MPV Neut # (Auto) Lymph # (Auto) [place] # (Auto) Eos # (Auto) Baso # (Auto) Absolute Nucleated RBC Nucleated RBC % Sodium Potassium Chloride Carbon Dioxide Anion Gap BUN Creatinine Estimated GFR (MDRD) Glucose Lactic Acid 1.0 Calcium Total Bilirubin AST ALT Alkaline Phosphatase Total Protein Albumin Globulin Albumin/Globulin Ratio Lipase Urine Color Urine Clarity Urine pH Ur Specific [place] Urine Protein Urine Glucose (UA) Urine Ketones Urine Occult Blood Urine Nitrite Urine Bilirubin Urine Urobilinogen Ur Leukocyte Esterase Urine RBC Urine WBC Ur Squamous Epith Cells Urine Bacteria Urine Mucus Ur Microscopic Review Urine Culture Comments Nasal Adenovirus (PCR) Nasal B. parapertussis DNA (PCR) Nasal Coronavir 229E PCR Nasal Coronavir HKU1 PCR Nasal Coronavir NL63 PCR Nasal Coronavir OC43 PCR Nasal Enterovir/Rhinovir PCR Nasal Influenza B PCR Nasal Influenza A PCR Nasal Parainfluen 1 PCR Nasal Parainfluen 2 PCR Nasal Parainfluen 3 PCR Nasal Parainfluen 4 PCR Nasal RSV (PCR) Nasal B.pertussis DNA PCR Nasal C.pneumoniae (PCR) Galo Human Metapneumo PCR Nasal M.pneumoniae (PCR) Nasal SARS-CoV-2 (PCR) Ethyl Alcohol - Rads (name of study) Chest x-ray Radiology: Final report received, EMP read indepedently, See rad report (Negative) PD MEDICAL DECISION MAKING - ED course Complexity details: reviewed results, re-evaluated patient, considered differential, d/w patient, other ED course: The patient was treated with Zofran, Tylenol and ibuprofen and worked up with labs, EKG, chest x-ray, urinalysis, respiratory PCR, and blood cultures. His EKG showed mild sinus tachycardia but otherwise unremarkable. His chest x-ray is negative. PCR panel was completely negative. His white blood cell count was normal and labs were otherwise unremarkable. Urinalysis showed some blood but otherwise unremarkable. The patient was given a total of 2 L of 0.9 normal saline before he was able to urinate. His vital signs did normalize after this and treatment with Tylenol and ibuprofen. The patient's lactic acid level initially was 2.3 but after fluids, he improved to 1.0. His mental status improved to the point of being oriented to self, place, including knowing that this was [facility] in [place], the year, and the president. He was able to shuffle to the bathroom and toilet himself without assistance and then shuffled back, which apparently is his normal gait. However, when not actively heavily stimulated, the patient was extremely drowsy and difficult to arouse. At first, the patient stated that he wanted to go home, and since he was fully oriented and in anticipation of him potentially leaving, I did give him a dose of Rocephin 2 g IV, given the height of his fever, his delirium, and is pending blood cultures. However, on reevaluation, the patient was still so heavily drowsy I did not feel that given the minimal support and the likely heavy needs of the patient, it would be safe for him to go home. I discussed the situation with Dr. Ellis, who felt that he could be admitted on an observation basis for altered mental status, pending blood cultures. The patient was agreeable to this plan. I have started him on more IV fluids and have given him another dose of Tylenol. Departure - Departure Disposition: ED Place in Observation Clinical Impression: Fever Qualifiers: Fever type: unspecified Qualified Code(s): R50.9 - Fever, unspecified Altered mental status Qualifiers: Altered mental status type: delirium Qualified Code(s): R41.0 - Disorientation, unspecified Condition: Serious
[2022-02-06] MEDS ORDERED: ACETAMINOPHEN 325 MG TABLET PO PRN (17:22)
[2022-02-06] MEDS ORDERED: SODIUM CHLORIDE FLUSH 0.9% 10 ML SYRINGE IVP PRN (17:22)
--- NOTE | 2022-02-06 18:13 | HISTORY & PHYSICAL EXAMINATION ---
Chief Complaint - Chief Complaint Chief Complaint: German Quiñonez noted that he is confused History of Present Illness - Admitted From Admitted From:: ED - History Obtained From History obtained from: ED provider and chart review - History of Present Illness HPI Comment/Other: This is a 81 y/o white male patient who was brought to the emergency department by EMS for chief complaint of altered mental status for the last couple of days, falls, and fever. The patient's friend Rosa, on whose property he lives, states that he "has not been like himself" for the last couple of days. He seems somewhat confused and like he was not as steady on his feet as usual. Rosa called EMS and they were unable to get the stretcher into the patient small cabin, so the patient had to walk downstairs to the stretcher, which she thought he could do. However, while walking, he fell. The medics were able to catch him and he was not injured, but he was not strong enough to continue walking. The medics state they got a temperature in route of 104. His blood sugar was normal. Medics did note the patient vomited in route. The patient denies any specific complaints. He states he feels like he is just cold all the time, but denies any nausea, vomiting, cough, shortness of breath, abdominal pain, or chest pain. He has some swelling of his right lower extremity which he states he has already had evaluated on a couple of occasions and does not have a DVT. He told the ER Provider that the color and size of the leg are at baseline, and denied a sore throat or rhinorrhea. He had no other complaints in the ED. For me, he is sound asleep and does not remain awake enough to complete a sentence. Patient has a history of bipolar disorder and PTSD. He was admitted here 3 months ago for sepsis from C. difficile colitis source. He had multiple electrolyte abnormalities and was orthostatic for many days. He was confused then, when blood pressure was low, and at that admission all his blood pressure medications were discontinued. History - Past Medical History Cardiovascular: reports: Hypertension, High cholesterol Respiratory: reports: Asthma, COPD, Other Endocrine/Autoimmune: reports: None GI: reports: Other : reports: None HEENT: reports: Other Psych: reports: Bipolar disorder Musculoskeletal: reports: None Derm: reports: None MRSA Hx?: No - Past Surgical History General: reports: Colonoscopy - Family & Social History Family History: Mother: Alive and Well, Father: Alive and Well Family History Comment/Other: No diseases run in the family. He has several sandi wn children. 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 He never smoked and rarely drinks alcohol. - Substance History Use: Uses substance without health or social issues: NONE Meds/Allgy - Home Medications Home Medications: Ambulatory Orders Medication Instructions Recorded Confirmed Albuterol Sulfate [Proair Hfa 1 - 2 puffs INH Q4H PRN 03/10/16 10/25/21 Inhaler] Escitalopram [Lexapro] 10 mg PO DAILY 08/27/21 10/25/21 Tamsulosin HCl [Flomax] 0.4 mg PO DAILY PM 08/27/21 10/25/21 lamoTRIgine [LaMICtal] 100 mg PO BID 08/27/21 10/25/21 Gabapentin [Neurontin] 300 mg PO QPM 10/25/21 10/25/21 Tadalafil [Cialis] 5 - 20 mg PO DAILY PRN 10/25/21 10/25/21 Meloxicam [Mobic] 15 mg PO DAILY PRN #15 tab 11/03/21 Potassium Chloride [K-Dur] 40 meq PO DAILYWM #8 tablet 11/03/21 Psyllium [Metamucil] 1 packet PO DAILY #7 packet 11/03/21 Simethicone [Mylicon] 80 mg PO 0900,1300,1800,2100 PRN 11/03/21 #16 tablet Vancomycin [Vancocin] 125 mg PO QID #16 cap 11/03/21 Zinc Sulfate 220 mg PO DAILY 11/03/21 - Allergies Allergies/Adverse Reactions: Allergies Allergy/AdvReac Type Severity Reaction Status Date / Time No Known Drug Allergies Allergy Verified 10/24/21 12:11 Review of Systems - Constitutional Constitutional: reports: Fatigue, Weakness - Gastrointestinal Gastrointestinal: reports: Vomiting (described today by EMS) - All Other Systems All Other Systems: reports: Other (No details about any other symptoms or known since he is confused and somnolent) Exam - Vital Signs Vital Signs: Vital Signs x48h Temp Pulse Pulse Resp BP BP Pulse Ox 02/06/22 18:11 36.3 C L 57 L 18 124/66 95 02/06/22 17:30 36.2 C L 95 13 105/62 95 02/06/22 15:50 36.3 C L 63 13 120/77 99 02/06/22 14:00 73 17 122/66 96 02/06/22 12:54 37.2 C 94 18 120/65 95 02/06/22 11:11 106 H 29 H 156/89 H 93 02/06/22 10:37 40.2 C H 105 H 27 H 160/90 H 97 - Physical Exam General Appearance: positive: Lethargic (Asleep, snoring, is in no distress, awakens to name or to touch and quickly falls asleep again) Eyes Bilateral: positive: No lid inflammation ENT: positive: ENT inspection nml, No signs of dehydration Neck: positive: Nml inspection, Thyroid nml, No JVD Respiratory: positive: No respiratory distress, Breath sounds nml Cardiovascular: positive: Regular rate & rhythm, Other (Heart sounds are distant over his snoring breath sounds) Abdomen: positive: Non-tender, No distention Skin: positive: Warm, Dry Extremities: positive: Non-tender, No pedal edema Neurologic/Psychiatric: positive: Other (Lethargic, Babinski are neg. He awakens to name or to touch and quickly falls back asleep, cannot continue a conversation) Conclusion/Plan - Problem List (1) Altered mental status Conclusion/Plan: A CT scan of the head was done that showed no striking abnormalities, microangiopathic changes of aging were seen. Please see room screen for alcohol was negative but no M UDS toxicology screen was done, and his home medications do have Lamictal and gabapentin which could be over-sedating. The likely cause of the mental status change is his high fever, but we have no obvious source to treat. The patient will be placed in Observation status, neurochecks will be ordered every 4 hours. Qualifiers: Qualified Code(s): R41.0 - Disorientation, unspecified (2) FUO (fever of unknown origin) Conclusion/Plan: He did have a fever of 104. He has a normal white blood count and only borderline elevated lactic acid level. Chest x-ray is normal and urinalysis is unremarkable. He had vomiting witnessed, but no other constitutional symptoms to localize a source of his fever. He will be placed in Observation status. Await blood culture results. Continue IV fluids He received empiric ceftriaxone in the ED. Without an obvious source of infection, no continuation of IV antibiotics is being ordered now. Because he had colitis 3 months ago and had vomiting witnessed today, an abdominal CT scan will be ordered. (3) JOEL (acute kidney injury) Conclusion/Plan: Likely from volume depletion related to the fever. He may also have had poor oral intake if he has been confused for several days. Will continue IV fluids. Avoid nephrotoxins. Follow BMP daily. - Lab Results Fish Bones: 02/06/22 10:52 02/06/22 10:52 - Diagnostic Imaging Results Diagnostic Imaging Results: positive: Final report reviewed
[2022-02-06] MEDS: DEXTROSE 5%-0.9% NACL 1,000 ML IV SCH (18:24)
[2022-02-06] MEDS ORDERED: MIN OIL/DIMETHICON/COCONUT OIL 92 GM TUBE TOP PRN (18:58)
[2022-02-06 20:09] LABS: MUDS CUTOFF CONCENTRATIONS CUTOFF CONC BELOW:
--- NOTE | 2022-02-06 20:16 | CT Report ---
PROCEDURE: Abdomen/Pelvis WO INDICATIONS: Fever, vomiting, recent C.diff colitis TECHNIQUE: Noncontrast 5 mm thick sections acquired from the diaphragms to the symphysis. 5 mm coronal and sagi ttal reformats were then performed. For radiation dose reduction, the following was used: automated exposure control, adjustment of mA and/or kV according to patient size. COMPARISON: CT abdomen pelvis 10/24/2021. FINDINGS: Image quality: There is mild motion artifact. Lung bases:There is dependent atelectasis and scarring the lung bases. Heart: Heart is normal in size. There is a small hiatal hernia. ABDOMEN: Liver: No mass lesion. Gallbladder: Within normal limits without calcified gallstones. Biliary ducts: No biliary ductal dilatation. Pancreas: Unremarkable. Spleen: Normal in size. Adrenal Glands: No adrenal nodules. Kidneys and Ureters: No hydronephrosis. Stomach and Bowel: Stomach and small bowel loops are normal in caliber and wall thickness. The appen shanice is normal in appearance. There is mild to moderate stool distention throughout the colon suggesti ve of constipation. No colonic wall thickening or paracolonic fat stranding to suggest an acute colit is. There is colonic diverticulosis without acute diverticulitis. Peritoneum:There is a small amount of free fluid in the pelvis and left paracolic gutter which are n onspecific and may be reactive. No free air. Ventral Wall: No hernia. Abdominal Nodes: No retroperitoneal or mesenteric adenopathy by size criteria. Vessels: Aorta and inferior vena cava are normal in size. PELVIS: Pelvic Organs: Unremarkable. Bladder: Unremarkable. Pelvic Nodes: No enlarged lymph nodes. Miscellaneous: No inguinal hernias are seen. Bones: There are sequelae of a chronic anterior inferior fracture of the T10 vertebral body redemons trated. Visualized osseous structures demonstrate no suspicious focal lesions. IMPRESSION: 1. No definite acute abdominal abnormality. Specifically, no CT evidence of acute colitis. 2. Mild to moderate colonic stool distention may reflect constipation. No evidence of bowel obstructi on. 3. Colonic diverticulosis without acute diverticulitis. Reviewed by: Tera Magana MD on 02/06/2022 8:14 PM PDT Approved by: Tera Magana MD on 02/06/2022 8:14 PM PDT Station ID: [id number]
[2022-02-06 20:20] LABS: AMPHETAMINE SCREEN,URINE NEGATIVE (NEGATIVE); BARBITURATE SCREEN,UR NEGATIVE (NEGATIVE); BENZODIAZEPINES SCREEN, URINE NEGATIVE (NEGATIVE); COCAINE SCREEN URINE NEGATIVE (NEGATIVE); METHADONE SCREEN, URINE NEGATIVE (NEGATIVE); METHAMPHETAMINES SCREEN, URINE NEGATIVE (NEGATIVE); OPIATE SCREEN, URINE NEGATIVE (NEGATIVE); OXYCODONE SCREEN, URINE NEGATIVE (NEGATIVE); PROPOXYPHENE SCREEN, URINE NEGATIVE (NEGATIVE); THC CANNABINOID SCREEN, URINE NEGATIVE (NEGATIVE); TRICYCLIC ANTIDEPRESSANT,URINE NEGATIVE (NEGATIVE)
[2022-02-07] MEDS: SODIUM CHLORIDE FLUSH 0.9% 10 ML SYRINGE IVP SCH ×3 (00:02→15:13)
[2022-02-07] MEDS: DEXTROSE 5%-0.9% NACL 1,000 ML IV SCH ×2 (04:44→15:40)
[2022-02-07 07:39] LABS: BASOPHILS % (AUTO) 0.1 %; HCT - HEMATOCRIT 27.5 % (42.0-52.0); HGB - HEMOGLOBIN 9.7 g/dL (14.0-18.0); LYMPHOCYTES # (AUTO) 0.6 10^3/uL (1.5-3.5); LYMPHOCYTES % (AUTO) 6.5 %; MEAN CORPUSCULAR HGB CONC 35.3 g/dL (32.0-36.0); MEAN CORPUSCULAR VOLUME 96.5 fL (80.0-94.0); MEAN PLATELET VOLUME 8.6 fL (7.4-11.4); MONOCYTES # (AUTO) 0.3 10^3/uL (0.0-1.0); MONOCYTES % (AUTO) 2.9 %; NEUTROPHILS # (AUTO) 7.7 10^3/uL (1.5-6.6); NEUTROPHILS % (AUTO) 90.1 %; PLT - PLATELET COUNT 144 10^3/uL (130-450); RED BLOOD COUNT 2.85 10^6/uL (4.70-6.10); RED CELL DISTRIBUTION WIDTH 13.4 % (12.0-15.0); WHITE BLOOD COUNT 8.5 x10^3/uL (4.8-10.8)
[2022-02-07 07:53] LABS: POTASSIUM 3.4 mmol/L (3.5-5.0)
[2022-02-07] MEDS: cefTRIAXone 1 GM in SODIUM CHLORIDE 0.9% MINIBAG 100 ML IV SCH (09:07)
[2022-02-07] MEDS ORDERED: POTASSIUM CHLORIDE 10 MEQ CAPSULE PO ONE (11:00)
[2022-02-07] MEDS ORDERED: VANCOMYCIN INJ 1 GM, VANCOMYCIN INJ 500 MG in SODIUM CHLORIDE 0.9% 500 ML IV ONE (16:30)
[2022-02-07] MEDS ORDERED: IBUPROFEN 800 MG TABLET PO PRN (16:41)
--- NOTE | 2022-02-07 16:41 | PROVIDER PROGRESS NOTE ---
Assessment/Plan - Problem List (1) Streptococcal bacteremia Assessment/Plan: His blood cultures drawn in the ED yesterday quickly turned positive (in under 12 hours). The Telemedicine night doctor was contacted over night and started him on daily iv ceftriaxone. We will admit the patient to Inpatient status. Continue with ceftriaxone IV empirically. Await blood culture results to tailor antibx He had another fever spike today therefore blood cultures will be repeated today. He will need an Echocardiogram to evaluate for endocarditis, this has been ordered. (Today is Wednesday and we have no lead technical writer here until Wednesday). (2) Cellulitis Conclusion/Plan: He can communicate today and gives history of redness of the right lower extremity for several months however in the last 1 week it has become hot and painful. Exam reveals redness and warmth of the dominguez circumferentially and swelling of the ankle without redness. He does not remember if he had any kind of trauma or animal bite for example. Will order an outline of the redness in order to follow how it recedes hopefully. Will also add vancomycin since he has been hospitalized (3 months ago), in case MRSA should also grow in any cultures. Will give pain meds prn. (3) Prerenal azotemia Conclusion/Plan: Likely from volume depletion related to the fever. He may also have had poor oral intake if he has been confused for several days. Today he is awake and says he is very thirsty Will continue IV fluids. Continue ad hortensia oral liquid intake. His home med of HCTZ will be kept on hold Avoid nephrotoxins. Follow BMP daily. (4) Altered mental status Conclusion/Plan: Resolved. Perhaps his home medications (Lamictal and Gabapentin) were over-sedating him. A CT scan of the head was done that showed no striking abnormalities, microangiopathic changes of aging were seen. Urine screen for alcohol was negative and we did a MUDS toxicology screen which was neg. The likely cause of the mental status change was his high fever and now we know he has bacteremia Will cancel neuro checks (5) Depression Conclusion/Plan: His home medications will not be resumed. - Current Meds Current Meds: Current Medications Generic Name Dose Route Start Last Admin Trade Name Freq PRN Reason Stop Dose Admin Acetaminophen 650 mg 02/06/22 17:22 02/07/22 14:27 Acetaminophen 325 Mg Tablet PO 650 mg Q4HR PRN Administration Pain 1 to 4, or Fever Dextrose/Sodium Chloride 1,000 mls @ 100 mls/hr 02/06/22 18:00 02/07/22 16:23 D5ns IV 0 mls/hr .Q10H ULISES Infusion Ceftriaxone Sodium 1 gm/ 100 mls @ 200 mls/hr 02/07/22 09:00 02/07/22 09:40 Sodium Chloride IV Infused DAILY ULISES Infusion Vancomycin HCl 1 gm/ 500 mls @ 250 mls/hr 02/07/22 16:30 02/07/22 16:20 Vancomycin HCl 500 mg/ Sodium IV 02/07/22 18:29 250 mls/hr Chloride ONCE ONE Administration Sodium Chloride 10 ml 02/07/22 01:00 02/07/22 15:13 Sodium Chloride Flush 0.9% 10 Ml Syringe IVP Not Given 0100,0900,1700 ULISES - Lab Result Fish Bone Diagrams: 02/07/22 07:33 02/07/22 07:33 - Additional Planning My Orders: My Active Orders 02/06/22 17:22 Telemetry- [RC] Q4HR Vital Signs [RC] Q4HR Acetaminophen [Tylenol] 650 mg PO Q4HR PRN Sodium Chloride Flush 0.9% [Normal Saline Flush 0.9%] 10 ml IVP PRN PRN 02/06/22 17:23 Activity Orders [RC] Q2HR IO [RC] IOSHIFT Initiate Bowel Care Protocol [RC] .protocol Initiate Line Care Protocol [RC] QSHIFT Initiate Personal Care Protoco [RC] .protocol Oxygen Therapy [RC] .PRN Code Status [OTHERS] Routine Condition of Patient [OTHERS] Routine DVT Prophylaxis [OTHERS] Routine 02/06/22 17:24 SCDs [RC] QSHIFT 02/06/22 17:25 Initiate Line Care Protocol [RC] QSHIFT Social Work Consult [CONS] Routine Evaluate and Treat OT [OT] Routine Evaluate and Treat PT [PT] Routine 02/06/22 18:00 Dextrose 5%-0.9% NaCl [D5ns] 1,000 ml IV 100 mls/hr 02/06/22 18:58 Min Oil/Dimeth/Coconut Oil Crm [Cavilon] 1 applic TOP PRN PRN 02/06/22 19:46 Neuro Check [RC] Q4H 02/07/22 01:00 Sodium Chloride Flush 0.9% [Normal Saline Flush 0.9%] 10 ml IVP 0100,0900,1700 02/07/22 09:05 CULTURE, BLOOD #1 [RM] Stat 02/07/22 09:10 CULTURE, BLOOD #2 [RM] Stat 02/07/22 Lunch DIET [Regular Diet] [DIET] 02/07/22 14:55 Miscellaenous Nursing Order [RC] ONCE 02/07/22 16:30 Vancomycin Inj [Vancomycin] 1 gm Vancomycin Inj [Vancomycin Hcl] 500 mg Sodium Chloride 0.9% [Normal Saline 0.9%] 500 ml IV ONCE 02/08/22 05:00 Vancomycin Inj [Vancomycin] 1 gm Sodium Chloride 0.9% [Normal Saline 0.9%] 250 ml IV Q12H 02/10/22 07:54 Echo Transthoracic Complete [ECHO] Routine Subjective - Subjective Patient Reports: Feeling Better (Is awake and alert, does not remember arriving here yesterday. Is foggy about the last few days.) Objective Vital Signs: Vital Signs - 24 hr 02/06/22 02/06/22 02/07/22 17:30 18:11 00:17 Temperature 36.2 C L 36.3 C L 36.4 C L Heart Rate 95 Heart Rate [ 57 L 67 Brachial] Respiratory 13 18 18 Rate Blood Pressure 105/62 Blood Pressure 124/66 [Left Brachial artery] Blood Pressure 110/51 L [Right Brachial artery] O2 Saturation 95 95 98 02/07/22 02/07/22 02/07/22 04:24 07:57 11:46 Temperature 38.1 C H 37.5 C 37.7 C Heart Rate Heart Rate [ 92 84 87 Brachial] Respiratory 18 18 20 Rate Blood Pressure Blood Pressure [Left Brachial artery] Blood Pressure 130/64 131/68 H 134/60 H [Right Brachial artery] O2 Saturation 96 98 97 02/07/22 02/07/22 14:11 15:39 Temperature 38.8 C H 38.1 C H Heart Rate Heart Rate [ 78 Brachial] Respiratory 20 Rate Blood Pressure Blood Pressure 136/62 H [Left Brachial artery] Blood Pressure [Right Brachial artery] O2 Saturation 97 Oxygen O2 Source Room air I&O (Last 24 Hrs): Intake and Output Totals x24h 02/05/22 02/06/22 02/07/22 23:59 23:59 23:59 Intake Total 2226.667 3485.000 Balance 2226.667 3485.000 General: Alert, Oriented x3 HEENT: Other (Has 1 false eyeball) Neck: Supple, No JVD Neuro: Alert, Non Focal Cardiovascular: Regular rate, No murmurs Respiratory: No respiratory distress, Breath sounds nml Abdomen: Normal bowel sounds, Soft, No tenderness Extremities: No clubbing, Other (None confluent redness of the right dominguez circumferentially, the ankle is spared but the ankle has 1+ edema. The dominguez is warm and tender.) - Results Results: Laboratory Results WBC 8.5 x10^3/uL (4.8-10.8) 02/07/22 07:33 RBC 2.85 10^6/uL (4.70-6.10) L 02/07/22 07:33 Hgb 9.7 g/dL (14.0-18.0) L 02/07/22 07:33 Hct 27.5 % (42.0-52.0) L 02/07/22 07:33 MCV 96.5 fL (80.0-94.0) H 02/07/22 07:33 MCH 34.0 pg (27.0-31.0) H 02/07/22 07:33 MCHC 35.3 g/dL (32.0-36.0) 02/07/22 07:33 RDW 13.4 % (12.0-15.0) 02/07/22 07:33 Plt Count 144 10^3/uL (130-450) 02/07/22 07:33 MPV 8.6 fL (7.4-11.4) 02/07/22 07:33 Neut # (Auto) 7.7 10^3/uL (1.5-6.6) H 02/07/22 07:33 Lymph # (Auto) 0.6 10^3/uL (1.5-3.5) L 02/07/22 07:33 [place] # (Auto) 0.3 10^3/uL (0.0-1.0) 02/07/22 07:33 Eos # (Auto) 0.0 10^3/uL (0.0-0.7) 02/07/22 07:33 Baso # (Auto) 0.0 10^3/uL (0.0-0.1) 02/07/22 07:33 Absolute Nucleated RBC 0.00 x10^3/uL 02/07/22 07:33 Nucleated RBC % 0.0 /100WBC 02/07/22 07:33 Sodium 135 mmol/L (135-145) 02/07/22 07:33 Potassium 3.4 mmol/L (3.5-5.0) L 02/07/22 07:33 Chloride 101 mmol/L (101-111) 02/07/22 07:33 Carbon Dioxide 27 mmol/L (21-32) 02/07/22 07:33 Anion Gap 7.0 (6-13) 02/07/22 07:33 BUN 31 mg/dL (6-20) H 02/07/22 07:33 Creatinine 1.0 mg/dL (0.6-1.2) 02/07/22 07:33 Estimated GFR (MDRD) 72 (>89) L 02/07/22 07:33 Glucose 127 mg/dL (70-100) H 02/07/22 07:33 Lactic Acid 1.0 mmol/L (0.5-2.2) 02/06/22 15:55 Calcium 8.0 mg/dL (8.5-10.3) L 02/07/22 07:33 Magnesium 1.7 mg/dL (1.7-2.8) 02/07/22 07:33 Total Bilirubin 0.8 mg/dL (0.2-1.0) 02/06/22 10:52 AST 41 IU/L (10-42) 02/06/22 10:52 ALT 20 IU/L (10-60) 02/06/22 10:52 Alkaline Phosphatase 62 IU/L (42-121) 02/06/22 10:52 Total Protein 7.7 g/dL (6.7-8.2) 02/06/22 10:52 Albumin 4.1 g/dL (3.2-5.5) 02/06/22 10:52 Globulin 3.6 g/dL (2.1-4.2) 02/06/22 10:52 Albumin/Globulin Ratio 1.1 (1.0-2.2) 02/06/22 10:52 Lipase 27 U/L (22-51) 02/06/22 10:52 Urine Color YELLOW 02/06/22 13:45 Urine Clarity HAZY (CLEAR) 02/06/22 13:45 Urine pH 6.0 PH (5.0-7.5) 02/06/22 13:45 Ur Specific [place] 1.025 (1.002-1.030) 02/06/22 13:45 Urine Protein 30 mg/dL (NEGATIVE) H 02/06/22 13:45 Urine Glucose (UA) NEGATIVE mg/dL (NEGATIVE) 02/06/22 13:45 Urine Ketones NEGATIVE mg/dL (NEGATIVE) 02/06/22 13:45 Urine Occult Blood LARGE (NEGATIVE) H 02/06/22 13:45 Urine Nitrite NEGATIVE (NEGATIVE) 02/06/22 13:45 Urine Bilirubin NEGATIVE (NEGATIVE) 02/06/22 13:45 Urine Urobilinogen 0.2 (NORMAL) E.U./dL (NORMAL) 02/06/22 13:45 Ur Leukocyte Esterase NEGATIVE (NEGATIVE) 02/06/22 13:45 Urine RBC 0-5 /HPF (0-5) 02/06/22 13:45 Urine WBC 0-3 /HPF (0-3) 02/06/22 13:45 Ur Squamous Epith Cells RARE Squamous (<= Few) 02/06/22 13:45 Urine Bacteria Rare /HPF (None Seen) 02/06/22 13:45 Urine Mucus Moderate Strands 02/06/22 13:45 Ur Microscopic Review INDICATED 02/06/22 13:45 Urine Culture Comments NOT INDICATED 02/06/22 13:45 Nasal Adenovirus (PCR) NOT DETECTED 02/06/22 10:55 Nasal B. parapertussis DNA (PCR) NOT DETECTED 02/06/22 10:55 Nasal Coronavir 229E PCR NOT DETECTED 02/06/22 10:55 Nasal Coronavir HKU1 PCR NOT DETECTED 02/06/22 10:55 Nasal Coronavir NL63 PCR NOT DETECTED 02/06/22 10:55 Nasal Coronavir OC43 PCR NOT DETECTED 02/06/22 10:55 Nasal Enterovir/Rhinovir PCR NOT DETECTED 02/06/22 10:55 Nasal Influenza B PCR NOT DETECTED 02/06/22 10:55 Nasal Influenza A PCR NOT DETECTED 02/06/22 10:55 Nasal Parainfluen 1 PCR NOT DETECTED 02/06/22 10:55 Nasal Parainfluen 2 PCR NOT DETECTED 02/06/22 10:55 Nasal Parainfluen 3 PCR NOT DETECTED 02/06/22 10:55 Nasal Parainfluen 4 PCR NOT DETECTED 02/06/22 10:55 Nasal RSV (PCR) NOT DETECTED 02/06/22 10:55 Nasal B.pertussis DNA PCR NOT DETECTED 02/06/22 10:55 Nasal C.pneumoniae (PCR) NOT DETECTED 02/06/22 10:55 [place] Human Metapneumo PCR NOT DETECTED 02/06/22 10:55 Nasal M.pneumoniae (PCR) NOT DETECTED 02/06/22 10:55 Nasal SARS-CoV-2 (PCR) NOT DETECTED 02/06/22 10:55 Urine Opiates Screen NEGATIVE (NEGATIVE) 02/06/22 13:45 Ur Oxycodone Screen NEGATIVE (NEGATIVE) 02/06/22 13:45 Urine Methadone Screen NEGATIVE (NEGATIVE) 02/06/22 13:45 Ur Propoxyphene Screen NEGATIVE (NEGATIVE) 02/06/22 13:45 Ur Barbiturates Screen NEGATIVE (NEGATIVE) 02/06/22 13:45 Ur Tricyclics Screen NEGATIVE (NEGATIVE) 02/06/22 13:45 Ur Phencyclidine Scrn NEGATIVE (NEGATIVE) 02/06/22 13:45 Ur Amphetamine Screen NEGATIVE (NEGATIVE) 02/06/22 13:45 U Methamphetamines Scrn NEGATIVE (NEGATIVE) 02/06/22 13:45 U Benzodiazepines Scrn NEGATIVE (NEGATIVE) 02/06/22 13:45 Urine Cocaine Screen NEGATIVE (NEGATIVE) 02/06/22 13:45 U Cannabinoids Screen NEGATIVE (NEGATIVE) 02/06/22 13:45 Ethyl Alcohol < 5.0 mg/dL 02/06/22 10:52 - Procedures Procedures: Procedures INSPECTION OF LOWER INTESTINAL TRACT, ENDO (09/27/17) REPAIR ABDOMINAL WALL, OPEN APPROACH (03/10/16) REPAIR BILATERAL INGUINAL REGION, PERC ENDO APPROACH (03/10/16) SUPPLEMENT ABDOMINAL WALL WITH SYNTH SUB, OPEN APPROACH (03/10/16) SUPPLEMENT BI INGUINAL REGION W SYNTH SUB, PERC ENDO (03/10/16) Attestation: The patient is expected to be discharged or transferred to another facility within 96 hours: Yes
[2022-02-07] MEDS: lamoTRIgine 100 MG TABLET PO SCH (20:08)
[2022-02-07] MEDS: GABAPENTIN 300 MG CAPSULE PO SCH (20:08)
[2022-02-07] MEDS: TAMSULOSIN 0.4 MG CAPSULE PO SCH (20:08)
[2022-02-07] MEDS ORDERED: GABAPENTIN 300 MG CAPSULE PO SCH (21:00)
[2022-02-08] MEDS: SODIUM CHLORIDE FLUSH 0.9% 10 ML SYRINGE IVP SCH ×3 (01:26→16:45)
[2022-02-08] MEDS: VANCOMYCIN INJ 1 GM in SODIUM CHLORIDE 0.9% 250 ML IV SCH ×2 (04:56→17:01)
[2022-02-08] MEDS: DEXTROSE 5%-0.9% NACL 1,000 ML IV SCH ×2 (04:56→19:01)
[2022-02-08 08:05] LABS: BASOPHILS % (AUTO) 0.2 %; EOSINOPHILS % (AUTO) 0.2 %; HCT - HEMATOCRIT 27.2 % (42.0-52.0); HGB - HEMOGLOBIN 9.3 g/dL (14.0-18.0); LYMPHOCYTES # (AUTO) 0.6 10^3/uL (1.5-3.5); LYMPHOCYTES % (AUTO) 9.3 %; MEAN CORPUSCULAR HEMOGLOBIN 33.6 pg (27.0-31.0); MEAN CORPUSCULAR HGB CONC 34.2 g/dL (32.0-36.0); MEAN CORPUSCULAR VOLUME 98.2 fL (80.0-94.0); MEAN PLATELET VOLUME 8.9 fL (7.4-11.4); MONOCYTES # (AUTO) 0.2 10^3/uL (0.0-1.0); MONOCYTES % (AUTO) 3.5 %; NEUTROPHILS # (AUTO) 5.7 10^3/uL (1.5-6.6); NEUTROPHILS % (AUTO) 86.3 %; PLT - PLATELET COUNT 153 10^3/uL (130-450); RED BLOOD COUNT 2.77 10^6/uL (4.70-6.10); RED CELL DISTRIBUTION WIDTH 13.4 % (12.0-15.0); WHITE BLOOD COUNT 6.6 x10^3/uL (4.8-10.8)
[2022-02-08 08:06] LABS: CALCIUM 8.3 mg/dL (8.5-10.3); POTASSIUM 3.5 mmol/L (3.5-5.0)
[2022-02-08] MEDS: lamoTRIgine 100 MG TABLET PO SCH ×2 (08:27→21:10)
[2022-02-08] MEDS: ESCITALOPRAM 10 MG TABLET PO SCH (08:27)
[2022-02-08] MEDS: cefTRIAXone 1 GM in SODIUM CHLORIDE 0.9% MINIBAG 100 ML IV SCH (08:27)
--- NOTE | 2022-02-08 14:09 | PROVIDER PROGRESS NOTE ---
Assessment/Plan - Problem List (1) Streptococcal bacteremia Assessment/Plan: His blood cultures drawn in the ED quickly turned positive (in under 12 hours). The Telemedicine night doctor was contacted and started him on daily iv ceftriaxone. He was admitted to Inpatient status. Continue with ceftriaxone IV empirically. Await blood culture results to tailor antibx He had another fever spiketherefore blood cultures were repeated and these are neg to date. He will need an Echocardiogram to evaluate for endocarditis, this has been ordered. (Today is Wednesday and we have no sterile technician here until Wednesday). (2) Cellulitis Conclusion/Plan: He gives history of redness of the right lower extremity for several months however in the last 1 week it has become hot and painful. Exam reveals redness and warmth of the dominguez circumferentially and swelling of the ankle without redness. He does not remember if he had any kind of trauma or animal bite for example. We have outlined the area of the redness in order to follow how it recedes hopefully. We also added vancomycin since he has been hospitalized (3 months ago), in case MRSA should also grow in any cultures. Will give pain meds prn. (3) Prerenal azotemia Conclusion/Plan: Likely from volume depletion related to the fever. He may also have had poor oral intake if he has been confused for several days. Since yesterday he is awake and says he is very thirsty Will continue IV fluids. Continue ad hortensia oral liquid intake. His home med of HCTZ will be kept on hold Avoid nephrotoxins. Follow BMP daily. (4) Depression Conclusion/Plan: His home medications will not be resumed. (5) Altered mental status Conclusion/Plan: Resolved. Perhaps his home medications (Lamictal and Gabapentin) were over-sedating him. A CT scan of the head was done that showed no striking abnormalities, microangiopathic changes of aging were seen. Urine screen for alcohol was negative and we did a MUDS toxicology screen which was neg. The likely cause of the mental status change was his high fever and now we know he has bacteremia Will cancel neuro checks - Current Meds Current Meds: Current Medications Generic Name Dose Route Start Last Admin Trade Name Freq PRN Reason Stop Dose Admin Acetaminophen 650 mg 02/06/22 17:22 02/07/22 14:27 Acetaminophen 325 Mg Tablet PO 650 mg Q4HR PRN Administration Pain 1 to 4, or Fever Escitalopram Oxalate 10 mg 02/08/22 09:00 02/08/22 08:27 Escitalopram 10 Mg Tablet PO 10 mg DAILY ULISES Administration Gabapentin 300 mg 02/07/22 21:00 02/07/22 20:08 Gabapentin 300 Mg Capsule PO 300 mg HS ULISES Administration Dextrose/Sodium Chloride 1,000 mls @ 100 mls/hr 02/06/22 18:00 02/08/22 08:58 D5ns IV 100 mls/hr .Q10H ULISES Infusion Ceftriaxone Sodium 1 gm/ 100 mls @ 200 mls/hr 02/07/22 09:00 02/08/22 08:58 Sodium Chloride IV Infused DAILY ULISES Infusion Vancomycin HCl 1 gm/ Sodium 250 mls @ 167 mls/hr 02/08/22 05:00 02/08/22 07:20 Chloride IV Infused Q12H ULISES Infusion Ibuprofen 800 mg 02/07/22 16:41 02/07/22 20:08 Ibuprofen 800 Mg Tablet PO 800 mg TID PRN Administration Joint Pain Lamotrigine 100 mg 02/07/22 21:00 02/08/22 08:27 Lamotrigine 100 Mg Tablet PO 100 mg BID ULISES Administration Sodium Chloride 10 ml 02/07/22 01:00 02/08/22 08:27 Sodium Chloride Flush 0.9% 10 Ml Syringe IVP Not Given 0100,0900,1700 ULISES Tamsulosin HCl 0.4 mg 02/07/22 21:00 02/07/22 20:08 Tamsulosin 0.4 Mg Capsule PO 0.4 mg HS ULISES Administration - Lab Result Fish Bone Diagrams: 02/08/22 07:44 02/08/22 07:44 - Additional Planning My Orders: My Active Orders 02/07/22 16:41 Ibuprofen [Motrin] 800 mg PO TID PRN 02/07/22 21:00 Gabapentin [Neurontin] 300 mg PO HS Tamsulosin [Flomax] 0.4 mg PO HS lamoTRIgine [LaMICtal] 100 mg PO BID 02/08/22 05:00 Vancomycin Inj [Vancomycin] 1 gm Sodium Chloride 0.9% [Normal Saline 0.9%] 250 ml IV Q12H 02/08/22 08:59 Vital Signs- Do Not Awaken For [RC] HS 02/08/22 09:00 Escitalopram [Lexapro] 10 mg PO DAILY 02/08/22 10:30 Zinc Oxide 20% Oint [Zinc Oxide] 1 applic TOP PRN PRN 02/09/22 04:00 VANCOMYCIN TROUGH [CHEM] Timed 02/09/22 05:00 BMP - BASIC METABOLIC PANEL [CHEM] DAILYLAB CBC - COMP BLD CT W/AUTO DIFF [HEME] DAILYLAB 02/10/22 05:00 BMP - BASIC METABOLIC PANEL [CHEM] DAILYLAB CBC - COMP BLD CT W/AUTO DIFF [HEME] DAILYLAB 02/10/22 07:54 Echo Transthoracic Complete [ECHO] Routine 02/11/22 05:00 BMP - BASIC METABOLIC PANEL [CHEM] DAILYLAB CBC - COMP BLD CT W/AUTO DIFF [HEME] DAILYLAB Subjective - Subjective Patient Reports: Feeling Better, Other (The right leg still hurts and is red but is slightly better, he is keeping it elevated.) Objective Vital Signs: Vital Signs - 24 hr 02/07/22 02/07/22 02/07/22 14:11 15:39 18:32 Temperature 38.8 C H 38.1 C H 36.8 C Heart Rate [ 78 Brachial] Respiratory 20 Rate Blood Pressure 136/62 H [Left Brachial artery] Blood Pressure [Right Brachial artery] O2 Saturation 97 02/07/22 02/08/22 02/08/22 19:42 00:25 05:00 Temperature 37.1 C 36.2 C L 36.4 C L Heart Rate [ 71 55 L 65 Brachial] Respiratory 20 16 18 Rate Blood Pressure 140/77 H [Left Brachial artery] Blood Pressure 122/64 140/66 H [Right Brachial artery] O2 Saturation 98 97 97 02/08/22 02/08/22 07:26 11:29 Temperature 36.6 C 36.7 C Heart Rate [ 64 66 Brachial] Respiratory 16 16 Rate Blood Pressure 129/77 136/71 H [Left Brachial artery] Blood Pressure [Right Brachial artery] O2 Saturation 96 98 Oxygen O2 Source Room air I&O (Last 24 Hrs): Intake and Output Totals x24h 02/06/22 02/07/22 02/08/22 23:59 23:59 23:59 Intake Total 2226.667 4455.000 2496.666 Balance 2226.667 4455.000 2496.666 General: Alert, Oriented x3 HEENT: Mucous membr. 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) Neck: Supple, No JVD Neuro: Alert, Non Focal Cardiovascular: Regular rate, No murmurs Respiratory: No respiratory distress, Breath sounds nml Abdomen: Normal bowel sounds, Soft Extremities: Other (Red area has decreased from the top of outline, swelling warmth and tenderness are unchanged and extend down to just above the R ankle.) - Results Results: Laboratory Results WBC 6.6 x10^3/uL (4.8-10.8) 02/08/22 07:44 RBC 2.77 10^6/uL (4.70-6.10) L 02/08/22 07:44 Hgb 9.3 g/dL (14.0-18.0) L 02/08/22 07:44 Hct 27.2 % (42.0-52.0) L 02/08/22 07:44 MCV 98.2 fL (80.0-94.0) H 02/08/22 07:44 MCH 33.6 pg (27.0-31.0) H 02/08/22 07:44 MCHC 34.2 g/dL (32.0-36.0) 02/08/22 07:44 RDW 13.4 % (12.0-15.0) 02/08/22 07:44 Plt Count 153 10^3/uL (130-450) 02/08/22 07:44 MPV 8.9 fL (7.4-11.4) 02/08/22 07:44 Neut # (Auto) 5.7 10^3/uL (1.5-6.6) 02/08/22 07:44 Lymph # (Auto) 0.6 10^3/uL (1.5-3.5) L 02/08/22 07:44 [place] # (Auto) 0.2 10^3/uL (0.0-1.0) 02/08/22 07:44 Eos # (Auto) 0.0 10^3/uL (0.0-0.7) 02/08/22 07:44 Baso # (Auto) 0.0 10^3/uL (0.0-0.1) 02/08/22 07:44 Absolute Nucleated RBC 0.00 x10^3/uL 02/08/22 07:44 Nucleated RBC % 0.0 /100WBC 02/08/22 07:44 Sodium 137 mmol/L (135-145) 02/08/22 07:44 Potassium 3.5 mmol/L (3.5-5.0) 02/08/22 07:44 Chloride 105 mmol/L (101-111) 02/08/22 07:44 Carbon Dioxide 27 mmol/L (21-32) 02/08/22 07:44 Anion Gap 5.0 (6-13) L 02/08/22 07:44 BUN 23 mg/dL (6-20) H 02/08/22 07:44 Creatinine 1.0 mg/dL (0.6-1.2) 02/08/22 07:44 Estimated GFR (MDRD) 72 (>89) L 02/08/22 07:44 Glucose 126 mg/dL (70-100) H 02/08/22 07:44 Lactic Acid 1.0 mmol/L (0.5-2.2) 02/06/22 15:55 Calcium 8.3 mg/dL (8.5-10.3) L 02/08/22 07:44 Magnesium 2.1 mg/dL (1.7-2.8) 02/08/22 07:44 Total Bilirubin 0.8 mg/dL (0.2-1.0) 02/06/22 10:52 AST 41 IU/L (10-42) 02/06/22 10:52 ALT 20 IU/L (10-60) 02/06/22 10:52 Alkaline Phosphatase 62 IU/L (42-121) 02/06/22 10:52 Total Protein 7.7 g/dL (6.7-8.2) 02/06/22 10:52 Albumin 4.1 g/dL (3.2-5.5) 02/06/22 10:52 Globulin 3.6 g/dL (2.1-4.2) 02/06/22 10:52 Albumin/Globulin Ratio 1.1 (1.0-2.2) 02/06/22 10:52 Lipase 27 U/L (22-51) 02/06/22 10:52 Urine Color YELLOW 02/06/22 13:45 Urine Clarity HAZY (CLEAR) 02/06/22 13:45 Urine pH 6.0 PH (5.0-7.5) 02/06/22 13:45 Ur Specific [place] 1.025 (1.002-1.030) 02/06/22 13:45 Urine Protein 30 mg/dL (NEGATIVE) H 02/06/22 13:45 Urine Glucose (UA) NEGATIVE mg/dL (NEGATIVE) 02/06/22 13:45 Urine Ketones NEGATIVE mg/dL (NEGATIVE) 02/06/22 13:45 Urine Occult Blood LARGE (NEGATIVE) H 02/06/22 13:45 Urine Nitrite NEGATIVE (NEGATIVE) 02/06/22 13:45 Urine Bilirubin NEGATIVE (NEGATIVE) 02/06/22 13:45 Urine Urobilinogen 0.2 (NORMAL) E.U./dL (NORMAL) 02/06/22 13:45 Ur Leukocyte Esterase NEGATIVE (NEGATIVE) 02/06/22 13:45 Urine RBC 0-5 /HPF (0-5) 02/06/22 13:45 Urine WBC 0-3 /HPF (0-3) 02/06/22 13:45 Ur Squamous Epith Cells RARE Squamous (<= Few) 02/06/22 13:45 Urine Bacteria Rare /HPF (None Seen) 02/06/22 13:45 Urine Mucus Moderate Strands 02/06/22 13:45 Ur Microscopic Review INDICATED 02/06/22 13:45 Urine Culture Comments NOT INDICATED 02/06/22 13:45 Nasal Adenovirus (PCR) NOT DETECTED 02/06/22 10:55 Nasal B. parapertussis DNA (PCR) NOT DETECTED 02/06/22 10:55 Nasal Coronavir 229E PCR NOT DETECTED 02/06/22 10:55 Nasal Coronavir HKU1 PCR NOT DETECTED 02/06/22 10:55 Nasal Coronavir NL63 PCR NOT DETECTED 02/06/22 10:55 Nasal Coronavir OC43 PCR NOT DETECTED 02/06/22 10:55 Nasal Enterovir/Rhinovir PCR NOT DETECTED 02/06/22 10:55 Nasal Influenza B PCR NOT DETECTED 02/06/22 10:55 Nasal Influenza A PCR NOT DETECTED 02/06/22 10:55 Nasal Parainfluen 1 PCR NOT DETECTED 02/06/22 10:55 Nasal Parainfluen 2 PCR NOT DETECTED 02/06/22 10:55 Nasal Parainfluen 3 PCR NOT DETECTED 02/06/22 10:55 Nasal Parainfluen 4 PCR NOT DETECTED 02/06/22 10:55 Nasal RSV (PCR) NOT DETECTED 02/06/22 10:55 Nasal B.pertussis DNA PCR NOT DETECTED 02/06/22 10:55 Nasal C.pneumoniae (PCR) NOT DETECTED 02/06/22 10:55 [place] Human Metapneumo PCR NOT DETECTED 02/06/22 10:55 Nasal M.pneumoniae (PCR) NOT DETECTED 02/06/22 10:55 Nasal SARS-CoV-2 (PCR) NOT DETECTED 02/06/22 10:55 Urine Opiates Screen NEGATIVE (NEGATIVE) 02/06/22 13:45 Ur Oxycodone Screen NEGATIVE (NEGATIVE) 02/06/22 13:45 Urine Methadone Screen NEGATIVE (NEGATIVE) 02/06/22 13:45 Ur Propoxyphene Screen NEGATIVE (NEGATIVE) 02/06/22 13:45 Ur Barbiturates Screen NEGATIVE (NEGATIVE) 02/06/22 13:45 Ur Tricyclics Screen NEGATIVE (NEGATIVE) 02/06/22 13:45 Ur Phencyclidine Scrn NEGATIVE (NEGATIVE) 02/06/22 13:45 Ur Amphetamine Screen NEGATIVE (NEGATIVE) 02/06/22 13:45 U Methamphetamines Scrn NEGATIVE (NEGATIVE) 02/06/22 13:45 U Benzodiazepines Scrn NEGATIVE (NEGATIVE) 02/06/22 13:45 Urine Cocaine Screen NEGATIVE (NEGATIVE) 02/06/22 13:45 U Cannabinoids Screen NEGATIVE (NEGATIVE) 02/06/22 13:45 Ethyl Alcohol < 5.0 mg/dL 02/06/22 10:52 - Procedures Procedures: Procedures INSPECTION OF LOWER INTESTINAL TRACT, ENDO (09/27/17) REPAIR ABDOMINAL WALL, OPEN APPROACH (03/10/16) REPAIR BILATERAL INGUINAL REGION, PERC ENDO APPROACH (03/10/16) SUPPLEMENT ABDOMINAL WALL WITH SYNTH SUB, OPEN APPROACH (03/10/16) SUPPLEMENT BI INGUINAL REGION W SYNTH SUB, PERC ENDO (03/10/16)
[2022-02-08] MEDS: ZINC OXIDE 20% OINT 30 GM TUBE TOP PRN (15:01)
[2022-02-08] MEDS: TAMSULOSIN 0.4 MG CAPSULE PO SCH (21:10)
[2022-02-08] MEDS: GABAPENTIN 300 MG CAPSULE PO SCH (21:10)
[2022-02-09] MEDS: DEXTROSE 5%-0.9% NACL 1,000 ML IV SCH (04:46)
[2022-02-09] MEDS: SODIUM CHLORIDE FLUSH 0.9% 10 ML SYRINGE IVP SCH ×3 (04:47→16:52)
[2022-02-09 04:48] LABS: BASOPHILS % (AUTO) 0.2 %; EOSINOPHILS % (AUTO) 0.4 %; HCT - HEMATOCRIT 27.2 % (42.0-52.0); HGB - HEMOGLOBIN 9.3 g/dL (14.0-18.0); LYMPHOCYTES # (AUTO) 0.7 10^3/uL (1.5-3.5); MEAN CORPUSCULAR HEMOGLOBIN 33.1 pg (27.0-31.0); MEAN CORPUSCULAR HGB CONC 34.2 g/dL (32.0-36.0); MEAN CORPUSCULAR VOLUME 96.8 fL (80.0-94.0); MEAN PLATELET VOLUME 8.6 fL (7.4-11.4); MONOCYTES # (AUTO) 0.2 10^3/uL (0.0-1.0); MONOCYTES % (AUTO) 3.6 %; NEUTROPHILS # (AUTO) 4.1 10^3/uL (1.5-6.6); NEUTROPHILS % (AUTO) 82.6 %; PLT - PLATELET COUNT 164 10^3/uL (130-450); RED BLOOD COUNT 2.81 10^6/uL (4.70-6.10); RED CELL DISTRIBUTION WIDTH 13.2 % (12.0-15.0)
[2022-02-09 05:02] LABS: BUN - BLOOD UREA NITROGEN 16 mg/dL (6-20); CALCIUM 8.3 mg/dL (8.5-10.3); CARBON DIOXIDE - CO2 26 mmol/L (21-32); CHLORIDE 104 mmol/L (101-111); CREATININE 0.9 mg/dL (0.6-1.2); GFR - MDRD 81 (>89); GLUCOSE 119 mg/dL (70-100); POTASSIUM 3.3 mmol/L (3.5-5.0); SODIUM 136 mmol/L (135-145); VANCOMYCIN,TROUGH 13.1 ug/mL (10.0-20.0)
[2022-02-09] MEDS: VANCOMYCIN INJ 1 GM in SODIUM CHLORIDE 0.9% 250 ML IV SCH ×2 (05:22→16:52)
[2022-02-09] MEDS: lamoTRIgine 100 MG TABLET PO SCH ×2 (08:46→20:13)
[2022-02-09] MEDS: ESCITALOPRAM 10 MG TABLET PO SCH (08:46)
[2022-02-09] MEDS: cefTRIAXone 1 GM in SODIUM CHLORIDE 0.9% MINIBAG 100 ML IV SCH (08:55)
[2022-02-09] MEDS: SACCHAROMYCES BOULARDII 250 MG CAPSULE PO SCH ×2 (08:58→16:52)
--- NOTE | 2022-02-09 11:01 | PROVIDER PROGRESS NOTE ---
Assessment/Plan - Problem List (1) Streptococcal bacteremia Assessment/Plan: His blood cultures drawn in the ED quickly turned positive (in under 12 hours). The Telemedicine night doctor was contacted and started him on daily iv ceftriaxone. An FUO became a Bacteremia Dx. and he was admitted to Inpatient status. Continue with ceftriaxone IV empirically. Await blood culture results to tailor antibx He had another fever spike therefore blood cultures were repeated and these are neg to date. He will need an Echocardiogram to evaluate for endocarditis, this has been ordered. (Today is Wednesday and we have no sleep lab technologist here until Wednesday). Duration of iv meds will depend on Echo findings. (2) Cellulitis Conclusion/Plan: He gives history of redness of the right lower extremity for several months however in the last 1 week it had become hot and painful. Exam reveals redness and warmth of the dominguez circumferentially including swelling of the ankle without redness. He does not remember if he had any kind of trauma or animal bite for example. We have outlined the area of the redness in order to follow how it recedes. We also added vancomycin since he has been hospitalized (3 months ago), in case MRSA should also grow in any cultures. Will give pain meds prn. (3) VTach Conclusion/Plan: Patient had a 14-beat run of monomorphic VT at 0930 today. He was asymptomatic. We will check troponins x2 and check magnesium. It may have been caused by his low potassium level seen on labs today. The potassium will be replaced. An Echo was just done 1 month ago as an outpt to "evaluate edema" and that showed LVH and normal LVEF. An Echo is ordered to be done tomorrow (to eval for endocarditis). (4) Hypokalemia Conclusion/Plan: Replace with K riders. Follow BMP daily. (5) Depression Conclusion/Plan: His home medications have been resumed. (6) Hx HTN Conclusion/Plan: He was on HCTZ only for BP control at home. HCTZ has been on hold because his blood pressure was "soft" and he needed fluids. Today blood pressures are creeping up, is 150 systolic. Will not resume the HCTZ because of the recent volume depletion causing prerenal azotemia. Will stop IV saline today. Will start a new BP med: Amlodipine 2.5 mg daily. (7) Prerenal azotemia Conclusion/Plan: This was likely from volume depletion related to the fever. He may also have had poor oral intake if he has been confused for several days. Since being awake he is very thirsty Will stop IV fluids today. His home med of HCTZ will be kept on hold (8) Altered mental status Conclusion/Plan: Resolved. A CT scan of the head was done that showed no striking abnormalities, except microangiopathic changes of aging were seen. Urine screen for alcohol was negative and a MUDS toxicology screen was neg. Initially we thought his high fev er and his home medications (Lamictal and Gabapentin) were causing over- sedation. The likely cause of the mental status change was his infection causing bacteremia. His AMS resolved by day 2. We cancelled neuro checks - Current Meds Current Meds: Current Medications Generic Name Dose Route Start Last Admin Trade Name Freq PRN Reason Stop Dose Admin Acetaminophen 650 mg 02/06/22 17:22 02/07/22 14:27 Acetaminophen 325 Mg Tablet PO 650 mg Q4HR PRN Administration Pain 1 to 4, or Fever Escitalopram Oxalate 10 mg 02/08/22 09:00 02/09/22 08:46 Escitalopram 10 Mg Tablet PO 10 mg DAILY ULISES Administration Gabapentin 300 mg 02/07/22 21:00 02/08/22 21:10 Gabapentin 300 Mg Capsule PO 300 mg HS ULISES Administration Dextrose/Sodium Chloride 1,000 mls @ 100 mls/hr 02/06/22 18:00 02/09/22 08:46 D5ns IV 0 mls/hr .Q10H ULISES Infusion Ceftriaxone Sodium 1 gm/ 100 mls @ 200 mls/hr 02/07/22 09:00 02/09/22 09:25 Sodium Chloride IV Infused DAILY ULISES Infusion Vancomycin HCl 1 gm/ Sodium 250 mls @ 167 mls/hr 02/08/22 05:00 02/09/22 06:55 Chloride IV Infused Q12H ULISES Infusion Ibuprofen 800 mg 02/07/22 16:41 02/07/22 20:08 Ibuprofen 800 Mg Tablet PO 800 mg TID PRN Administration Joint Pain Lamotrigine 100 mg 02/07/22 21:00 02/09/22 08:46 Lamotrigine 100 Mg Tablet PO 100 mg BID ULISES Administration Multi-Ingredient Ointment 1 applic 02/08/22 10:30 02/08/22 15:01 Zinc Oxide 20% Oint 30 Gm Tube TOP 1 applic PRN PRN Administration Skin Care Saccharomyces Boulardii 250 mg 02/09/22 09:00 02/09/22 08:58 Saccharomyces Boulardii 250 Mg Capsule PO 250 mg BIDWM ULISES Administration Sodium Chloride 10 ml 02/07/22 01:00 02/09/22 04:47 Sodium Chloride Flush 0.9% 10 Ml Syringe IVP Not Given 0100,0900,1700 ULISES Tamsulosin HCl 0.4 mg 02/07/22 21:00 02/08/22 21:10 Tamsulosin 0.4 Mg Capsule PO 0.4 mg HS ULISES Administration - Lab Result Fish Bone Diagrams: 02/09/22 04:45 02/09/22 04:45 - Additional Planning My Orders: My Active Orders 02/08/22 10:30 Zinc Oxide 20% Oint [Zinc Oxide] 1 applic TOP PRN PRN 02/09/22 09:00 Saccharomyces Boulardii [Florastor] 250 mg PO BIDWM 02/09/22 10:55 TROPONIN I HIGH SENSITIVITY [IAI] Stat 02/09/22 10:56 MAGNESIUM [CHEM] Urgent 02/09/22 11:00 Potassium Chloride/Water 10 mEq/100 mL q1h (Enter # of bags) Potassium Chlor 10 Meq/100 ml [Potassium Chloride] 10 meq in 100 ml IV Q1H 02/10/22 05:00 BMP - BASIC METABOLIC PANEL [CHEM] DAILYLAB CBC - COMP BLD CT W/AUTO DIFF [HEME] DAILYLAB 02/10/22 07:54 Echo Transthoracic Complete [ECHO] Routine 02/11/22 05:00 BMP - BASIC METABOLIC PANEL [CHEM] DAILYLAB CBC - COMP BLD CT W/AUTO DIFF [HEME] DAILYLAB Subjective - Subjective Patient Reports: Resting Comfortably, No Complaints, Other (R lower leg is less painful, less swollen today and therefore he can bend his ankle today) Objective Vital Signs: Vital Signs - 24 hr 02/08/22 02/08/22 02/08/22 11:29 17:00 19:51 Temperature 36.7 C 37.3 C 37.5 C Heart Rate [ 66 82 89 Brachial] Respiratory 16 20 20 Rate Blood Pressure 136/71 H 151/74 H 167/91 H [Left Brachial artery] O2 Saturation 98 100 98 02/09/22 02/09/22 02/09/22 00:06 03:27 07:43 Temperature 37.3 C 37.2 C 37.3 C Heart Rate [ 90 97 78 Brachial] Respiratory 20 20 19 Rate Blood Pressure 162/76 H 164/83 H 153/71 H [Left Brachial artery] O2 Saturation 96 96 94 Oxygen O2 Source Room air I&O (Last 24 Hrs): Intake and Output Totals x24h 02/07/22 02/08/22 02/09/22 23:59 23:59 23:59 Intake Total 4455.000 4518.333 2165 Balance 4455.000 4518.333 2165 General: Alert, Oriented x3 HEENT: Mucous membr. 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 The area involved has receeded from outline) - Results Results: Laboratory Results WBC 5.0 x10^3/uL (4.8-10.8) 02/09/22 04:45 RBC 2.81 10^6/uL (4.70-6.10) L 02/09/22 04:45 Hgb 9.3 g/dL (14.0-18.0) L 02/09/22 04:45 Hct 27.2 % (42.0-52.0) L 02/09/22 04:45 MCV 96.8 fL (80.0-94.0) H 02/09/22 04:45 MCH 33.1 pg (27.0-31.0) H 02/09/22 04:45 MCHC 34.2 g/dL (32.0-36.0) 02/09/22 04:45 RDW 13.2 % (12.0-15.0) 02/09/22 04:45 Plt Count 164 10^3/uL (130-450) 02/09/22 04:45 MPV 8.6 fL (7.4-11.4) 02/09/22 04:45 Neut # (Auto) 4.1 10^3/uL (1.5-6.6) 02/09/22 04:45 Lymph # (Auto) 0.7 10^3/uL (1.5-3.5) L 02/09/22 04:45 [place] # (Auto) 0.2 10^3/uL (0.0-1.0) 02/09/22 04:45 Eos # (Auto) 0.0 10^3/uL (0.0-0.7) 02/09/22 04:45 Baso # (Auto) 0.0 10^3/uL (0.0-0.1) 02/09/22 04:45 Absolute Nucleated RBC 0.00 x10^3/uL 02/09/22 04:45 Nucleated RBC % 0.0 /100WBC 02/09/22 04:45 Sodium 136 mmol/L (135-145) 02/09/22 04:45 Potassium 3.3 mmol/L (3.5-5.0) L 02/09/22 04:45 Chloride 104 mmol/L (101-111) 02/09/22 04:45 Carbon Dioxide 26 mmol/L (21-32) 02/09/22 04:45 Anion Gap 6.0 (6-13) 02/09/22 04:45 BUN 16 mg/dL (6-20) 02/09/22 04:45 Creatinine 0.9 mg/dL (0.6-1.2) 02/09/22 04:45 Estimated GFR (MDRD) 81 (>89) L 02/09/22 04:45 Glucose 119 mg/dL (70-100) H 02/09/22 04:45 Lactic Acid 1.0 mmol/L (0.5-2.2) 02/06/22 15:55 Calcium 8.3 mg/dL (8.5-10.3) L 02/09/22 04:45 Magnesium 2.1 mg/dL (1.7-2.8) 02/08/22 07:44 Total Bilirubin 0.8 mg/dL (0.2-1.0) 02/06/22 10:52 AST 41 IU/L (10-42) 02/06/22 10:52 ALT 20 IU/L (10-60) 02/06/22 10:52 Alkaline Phosphatase 62 IU/L (42-121) 02/06/22 10:52 Total Protein 7.7 g/dL (6.7-8.2) 02/06/22 10:52 Albumin 4.1 g/dL (3.2-5.5) 02/06/22 10:52 Globulin 3.6 g/dL (2.1-4.2) 02/06/22 10:52 Albumin/Globulin Ratio 1.1 (1.0-2.2) 02/06/22 10:52 Lipase 27 U/L (22-51) 02/06/22 10:52 Urine Color YELLOW 02/06/22 13:45 Urine Clarity HAZY (CLEAR) 02/06/22 13:45 Urine pH 6.0 PH (5.0-7.5) 02/06/22 13:45 Ur Specific [place] 1.025 (1.002-1.030) 02/06/22 13:45 Urine Protein 30 mg/dL (NEGATIVE) H 02/06/22 13:45 Urine Glucose (UA) NEGATIVE mg/dL (NEGATIVE) 02/06/22 13:45 Urine Ketones NEGATIVE mg/dL (NEGATIVE) 02/06/22 13:45 Urine Occult Blood LARGE (NEGATIVE) H 02/06/22 13:45 Urine Nitrite NEGATIVE (NEGATIVE) 02/06/22 13:45 Urine Bilirubin NEGATIVE (NEGATIVE) 02/06/22 13:45 Urine Urobilinogen 0.2 (NORMAL) E.U./dL (NORMAL) 02/06/22 13:45 Ur Leukocyte Esterase NEGATIVE (NEGATIVE) 02/06/22 13:45 Urine RBC 0-5 /HPF (0-5) 02/06/22 13:45 Urine WBC 0-3 /HPF (0-3) 02/06/22 13:45 Ur Squamous Epith Cells RARE Squamous (<= Few) 02/06/22 13:45 Urine Bacteria Rare /HPF (None Seen) 02/06/22 13:45 Urine Mucus Moderate Strands 02/06/22 13:45 Ur Microscopic Review INDICATED 02/06/22 13:45 Urine Culture Comments NOT INDICATED 02/06/22 13:45 Nasal Adenovirus (PCR) NOT DETECTED 02/06/22 10:55 Nasal B. parapertussis DNA (PCR) NOT DETECTED 02/06/22 10:55 Nasal Coronavir 229E PCR NOT DETECTED 02/06/22 10:55 Nasal Coronavir HKU1 PCR NOT DETECTED 02/06/22 10:55 Nasal Coronavir NL63 PCR NOT DETECTED 02/06/22 10:55 Nasal Coronavir OC43 PCR NOT DETECTED 02/06/22 10:55 Nasal Enterovir/Rhinovir PCR NOT DETECTED 02/06/22 10:55 Nasal Influenza B PCR NOT DETECTED 02/06/22 10:55 Nasal Influenza A PCR NOT DETECTED 02/06/22 10:55 Nasal Parainfluen 1 PCR NOT DETECTED 02/06/22 10:55 Nasal Parainfluen 2 PCR NOT DETECTED 02/06/22 10:55 Nasal Parainfluen 3 PCR NOT DETECTED 02/06/22 10:55 Nasal Parainfluen 4 PCR NOT DETECTED 02/06/22 10:55 Nasal RSV (PCR) NOT DETECTED 02/06/22 10:55 Nasal B.pertussis DNA PCR NOT DETECTED 02/06/22 10:55 Nasal C.pneumoniae (PCR) NOT DETECTED 02/06/22 10:55 Galo Human Metapneumo PCR NOT DETECTED 02/06/22 10:55 Nasal M.pneumoniae (PCR) NOT DETECTED 02/06/22 10:55 Nasal SARS-CoV-2 (PCR) NOT DETECTED 02/06/22 10:55 Last Dose Date 02/0802/09/22 04:45 Last Dose Time 185802/09/22 04:45 Vancomycin Trough 13.1 ug/mL (10.0-20.0) 02/09/22 04:45 Urine Opiates Screen NEGATIVE (NEGATIVE) 02/06/22 13:45 Ur Oxycodone Screen NEGATIVE (NEGATIVE) 02/06/22 13:45 Urine Methadone Screen NEGATIVE (NEGATIVE) 02/06/22 13:45 Ur Propoxyphene Screen NEGATIVE (NEGATIVE) 02/06/22 13:45 Ur Barbiturates Screen NEGATIVE (NEGATIVE) 02/06/22 13:45 Ur Tricyclics Screen NEGATIVE (NEGATIVE) 02/06/22 13:45 Ur Phencyclidine Scrn NEGATIVE (NEGATIVE) 02/06/22 13:45 Ur Amphetamine Screen NEGATIVE (NEGATIVE) 02/06/22 13:45 U Methamphetamines Scrn NEGATIVE (NEGATIVE) 02/06/22 13:45 U Benzodiazepines Scrn NEGATIVE (NEGATIVE) 02/06/22 13:45 Urine Cocaine Screen NEGATIVE (NEGATIVE) 02/06/22 13:45 U Cannabinoids Screen NEGATIVE (NEGATIVE) 02/06/22 13:45 Ethyl Alcohol < 5.0 mg/dL 02/06/22 10:52 - Procedures Procedures: Procedures INSPECTION OF LOWER INTESTINAL TRACT, ENDO (09/27/17) REPAIR ABDOMINAL WALL, OPEN APPROACH (03/10/16) REPAIR BILATERAL INGUINAL REGION, PERC ENDO APPROACH (03/10/16) SUPPLEMENT ABDOMINAL WALL WITH SYNTH SUB, OPEN APPROACH (03/10/16) SUPPLEMENT BI INGUINAL REGION W SYNTH SUB, PERC ENDO (03/10/16)
[2022-02-09] MEDS: POTASSIUM CHLOR 10 MEQ/100 ML 10 MEQ/100 ML BAG IV SCH ×3 (12:28→15:08)
[2022-02-09] MEDS: amLODIPine 5 MG TABLET PO SCH (12:43)
[2022-02-09] MEDS: ZINC OXIDE 20% OINT 30 GM TUBE TOP PRN (15:00)
[2022-02-09] MEDS: TAMSULOSIN 0.4 MG CAPSULE PO SCH (20:13)
[2022-02-09] MEDS: GABAPENTIN 300 MG CAPSULE PO SCH (20:13)
[2022-02-10] MEDS: SODIUM CHLORIDE FLUSH 0.9% 10 ML SYRINGE IVP SCH ×4 (01:04→23:41)
[2022-02-10 04:38] LABS: BASOPHILS % (AUTO) 0.2 %; EOSINOPHILS # (AUTO) 0.1 10^3/uL (0.0-0.7); EOSINOPHILS % (AUTO) 1.4 %; HCT - HEMATOCRIT 28.7 % (42.0-52.0); HGB - HEMOGLOBIN 9.8 g/dL (14.0-18.0); LYMPHOCYTES # (AUTO) 0.8 10^3/uL (1.5-3.5); LYMPHOCYTES % (AUTO) 15.8 %; MEAN CORPUSCULAR HEMOGLOBIN 33.7 pg (27.0-31.0); MEAN CORPUSCULAR HGB CONC 34.1 g/dL (32.0-36.0); MEAN CORPUSCULAR VOLUME 98.6 fL (80.0-94.0); MEAN PLATELET VOLUME 8.8 fL (7.4-11.4); MONOCYTES # (AUTO) 0.3 10^3/uL (0.0-1.0); NEUTROPHILS # (AUTO) 3.8 10^3/uL (1.5-6.6); NEUTROPHILS % (AUTO) 76.2 %; PLT - PLATELET COUNT 206 10^3/uL (130-450); RED BLOOD COUNT 2.91 10^6/uL (4.70-6.10); RED CELL DISTRIBUTION WIDTH 13.2 % (12.0-15.0)
[2022-02-10 04:48] LABS: CALCIUM 8.9 mg/dL (8.5-10.3); CREATININE 0.8 mg/dL (0.6-1.2); POTASSIUM 3.3 mmol/L (3.5-5.0)
[2022-02-10] MEDS: VANCOMYCIN INJ 1 GM in SODIUM CHLORIDE 0.9% 250 ML IV SCH (05:04)
[2022-02-10] MEDS: SACCHAROMYCES BOULARDII 250 MG CAPSULE PO SCH ×2 (07:55→17:07)
[2022-02-10] MEDS: ESCITALOPRAM 10 MG TABLET PO SCH (09:29)
[2022-02-10] MEDS: amLODIPine 5 MG TABLET PO SCH (09:29)
[2022-02-10] MEDS: lamoTRIgine 100 MG TABLET PO SCH ×2 (09:29→20:02)
[2022-02-10] MEDS: cephALEXin 250 MG CAPSULE PO SCH ×3 (12:20→23:41)
[2022-02-10] MEDS ORDERED: POTASSIUM CHLORIDE 20 MEQ TABLET PO ONE (12:25)
--- NOTE | 2022-02-10 12:36 | Discharge Plan ---
Discharge Plan for SNF / [facility] - Discharge Plan And Transition Orders Condition: Serious Allergies and Adverse Reactions: Allergies Allergy/AdvReac Type Severity Reaction Status Date / Time No Known Drug Allergies Allergy Verified 10/24/21 12:11 - SNF / [facility]FW[facility] Transition Orders Medicare Certification Statement: I certify that Post Hospital fpc care is medically necessary on a continuing basis for any of the conditions for which she/he is receiving care during hospitalization. Notify PCP of admission and forward orders to primary provider for signature. Other Notification Orders: Call PCP immediately if patient develops dyspnea, chest pain/tightness or edema. Additional Bowel Program Orders: If no BM after 2 days, nurse may give M.O.M. 30ml PO PRN and/or ducolax Supp 1 IA and/or DAVE 250mg P.O., and/or senna 1-2 tabs PO. On day 3 nurse may give repeat above order until residents constipation is resolved. Medication Orders: PLEASE REFER TO THE DISCHARGE MEDICATION LIST.
--- NOTE | 2022-02-10 12:51 | PROVIDER PROGRESS NOTE ---
Subjective - Prog Note Date Prog Note Date: 02/10/22 Prog Note Time: 12:00 - Subjective Pt reports feeling: Improved (States cellulitis feels "80%" better. He is alert and does not appear to be in any acute distress.) Current Medications - Current Medications Current Medications: Active Medications Acetaminophen (Acetaminophen 325 Mg Tablet) 650 mg PO Q4HR PRN PRN Reason: Pain 1 to 4, or Fever Last Admin: 02/07/22 14:27 Dose: 650 mg Amlodipine Besylate (Amlodipine 5 Mg Tablet) 2.5 mg PO DAILY [facility] Last Admin: 02/10/22 09:29 Dose: 2.5 mg Cephalexin (Cephalexin 250 Mg Capsule) 500 mg PO Q6HR [facility] Last Admin: 02/10/22 12:20 Dose: 500 mg Escitalopram Oxalate (Escitalopram 10 Mg Tablet) 10 mg PO DAILY [facility] Last Admin: 02/10/22 09:29 Dose: 10 mg Gabapentin (Gabapentin 300 Mg Capsule) 300 mg PO HS [facility] Last Admin: 02/09/22 20:13 Dose: 300 mg Ibuprofen (Ibuprofen 800 Mg Tablet) 800 mg PO TID PRN PRN Reason: Joint Pain Last Admin: 02/07/22 20:08 Dose: 800 mg Lamotrigine (Lamotrigine 100 Mg Tablet) 100 mg PO BID [facility] Last Admin: 02/10/22 09:29 Dose: 100 mg Mineral Oil (Min Oil/Dimethicon/Coconut Oil 92 Gm Tube) 1 applic TOP PRN PRN PRN Reason: Skin Care Multi-Ingredient Ointment (Zinc Oxide 20% Oint 30 Gm Tube) 1 applic TOP PRN PRN PRN Reason: Skin Care Last Admin: 02/09/22 15:00 Dose: 1 applic Saccharomyces Boulardii (Saccharomyces Boulardii 250 Mg Capsule) 250 mg PO BIDWM [facility] Last Admin: 02/10/22 07:55 Dose: 250 mg Sodium Chloride (Sodium Chloride Flush 0.9% 10 Ml Syringe) 10 ml IVP PRN PRN PRN Reason: NEEDED PER PROVIDER ORDERS Sodium Chloride (Sodium Chloride Flush 0.9% 10 Ml Syringe) 10 ml IVP 0100,0900,1700 [facility] Last Admin: 02/10/22 09:32 Dose: 10 ml Tamsulosin HCl (Tamsulosin 0.4 Mg Capsule) 0.4 mg PO [facility] Last Admin: 02/09/22 20:13 Dose: 0.4 mg Tamsulosin HCl [Flomax] 0.4 mg PO DAILY PM 08/27/21 lamoTRIgine [LaMICtal] 100 mg PO BID 08/27/21 Gabapentin [Neurontin] 300 mg PO QPM 10/25/21 Escitalopram [Lexapro] 10 mg PO DAILY 02/07/22 Gabapentin [Neurontin] 300 mg PO HS 02/07/22 Ibuprofen [Motrin] 1 tablet PO TID PRN 02/07/22 hydroCHLOROthiazide [Hydrodiuril] 25 mg PO DAILY 02/07/22 Objective - Vital Signs/Intake & Output Reviewed Vital Signs: Yes Vital Signs: Vital Signs x48h Temp Pulse Resp BP Pulse Ox 02/10/22 09:00 37.1 C 82 18 158/89 H 96 Intake & Output: Intake & Output 02/07/22 02/08/22 02/09/22 02/10/22 23:59 23:59 23:59 23:59 Intake Total 4455.000 4518.333 3953.75 500 Balance 4455.000 4518.333 3953.75 500 - Objective General Appearance: positive: No acute distress Eyes Bilateral: positive: Normal inspection, Other (Right eye prosthesis.) ENT: positive: ENT inspection nml, Other Neck: positive: Nml inspection (Supple), No JVD Respiratory: positive: No respiratory distress, Breath sounds nml Cardiovascular: positive: Regular rate & rhythm, No murmur, No gallop Abdomen: positive: Non-tender, Nml bowel sounds, No distention Extremities: positive: Other (R lower leg still red, warm, and swollen; however, it has visibly receeded from outline.) Neurologic/Psychiatric: positive: Oriented x3 - Lab Results Fish Bones: 02/10/22 04:25 02/10/22 04:25 Other Labs: Lab Results x24hrs 02/10/22 02/10/22 02/09/22 Range/Units 04:25 04:25 14:22 WBC 5.0 (4.8-10.8) x10^3/uL RBC 2.91 L (4.70-6.10) 10^6/uL Hgb 9.8 L (14.0-18.0) g/dL Hct 28.7 L (42.0-52.0) % MCV 98.6 H (80.0-94.0) fL MCH 33.7 H (27.0-31.0) pg MCHC 34.1 (32.0-36.0) g/dL RDW 13.2 (12.0-15.0) % Plt Count 206 (130-450) 10^3/uL MPV 8.8 (7.4-11.4) fL Neut # (Auto) 3.8 (1.5-6.6) 10^3/uL Lymph # (Auto) 0.8 L (1.5-3.5) 10^3/uL Story # (Auto) 0.3 (0.0-1.0) 10^3/uL Eos # (Auto) 0.1 (0.0-0.7) 10^3/uL Baso # (Auto) 0.0 (0.0-0.1) 10^3/uL Absolute Nucleated RBC 0.00 x10^3/uL Nucleated RBC % 0.0 /100WBC Sodium 138 (135-145) mmol/L Potassium 3.3 L (3.5-5.0) mmol/L Chloride 104 (101-111) mmol/L Carbon Dioxide 28 (21-32) mmol/L Anion Gap 6.0 (6-13) BUN 10 (6-20) mg/dL Creatinine 0.8 (0.6-1.2) mg/dL Estimated GFR (MDRD) 93 (>89) Glucose 107 H (70-100) mg/dL Calcium 8.9 (8.5-10.3) mg/dL Troponin I High Sens 38.5 H* (2.3-19.7) ng/L Assessment/Plan - Problem List (1) Streptococcal bacteremia Impression: Blood cultures negative to date. Echocardiogram was ordered and will be performed today to rule out endocarditis. IV ceftriaxone has been discontinued. (2) Cellulitis Impression: His right lower extremity is still swollen, red, and slightly warm to the touch. However, it has considerably receded from previously outlined area of redness. IV vancomycin has been discontinued. PO cephalexin 500mg q6hr has been started. He is being given analgesics prn, and the right lower extremity is being kept e levated. Qualifiers: Site of cellulitis: extremity Site of cellulitis of extremity: lower extremity Laterality: right Qualified Code(s): L03.115 - Cellulitis of right lower limb (3) Wide-complex tachycardia Impression: On 02/09, wide-complex tachycardic episodes were noted on telemetry strips. Pt was asymptomatic. Troponins were rechecked x 2, and found to be high but on a downward trend. His potassium was checked and the results were low - this may be the cause. Potassium is being replaced PO. Pt had an echocardiogram one month ago as outpatient to "evaluate edema", the results included LCH and normal LVEF. Another echo will be done today (Wednesday) to rule out endocarditis. (4) Hypokalemia Impression: Potassium is low at 3.3 L, it is being replaced PO (40meq qd). (5) Depression Impression: Pt's affect is flat. His home medications have been resumed (escitalopram 10mg PO qd). (6) Prerenal azotemia Impression: This was likely from volume depletion, as it has resolved since his hospitalization. His fluid intake is adequate PO, IV fluids were discontinued. Home medication of HCTZ is being kept on hold. (7) History of hypertension Impression: Pt was on HCTZ for BP management at home. It has been put on hold because of low blood pressure, dehydration, and electrolyte imbalances. Amlodipine 2.5mg PO daily was started, and his blood pressure is 158/98. He may need outpatient maximized medical therapy to address his chronic hypertension. (8) Altered mental status Impression: Completely resolved, likely a result of dehydration/infection. Qualifiers:
[2022-02-10] MEDS: GABAPENTIN 300 MG CAPSULE PO SCH (20:02)
[2022-02-10] MEDS: TAMSULOSIN 0.4 MG CAPSULE PO SCH (20:02)
[2022-02-11 06:12] LABS: BASOPHILS % (AUTO) 0.3 %; EOSINOPHILS # (AUTO) 0.1 10^3/uL (0.0-0.7); EOSINOPHILS % (AUTO) 3.1 %; HCT - HEMATOCRIT 29.4 % (42.0-52.0); HGB - HEMOGLOBIN 10.3 g/dL (14.0-18.0); LYMPHOCYTES # (AUTO) 0.7 10^3/uL (1.5-3.5); LYMPHOCYTES % (AUTO) 18.5 %; MEAN CORPUSCULAR HEMOGLOBIN 33.9 pg (27.0-31.0); MEAN CORPUSCULAR VOLUME 96.7 fL (80.0-94.0); MEAN PLATELET VOLUME 8.8 fL (7.4-11.4); MONOCYTES # (AUTO) 0.3 10^3/uL (0.0-1.0); MONOCYTES % (AUTO) 6.9 %; NEUTROPHILS # (AUTO) 2.8 10^3/uL (1.5-6.6); NEUTROPHILS % (AUTO) 70.9 %; PLT - PLATELET COUNT 223 10^3/uL (130-450); RED BLOOD COUNT 3.04 10^6/uL (4.70-6.10); RED CELL DISTRIBUTION WIDTH 12.9 % (12.0-15.0); WHITE BLOOD COUNT 3.9 x10^3/uL (4.8-10.8)
[2022-02-11 06:20] LABS: CALCIUM 8.9 mg/dL (8.5-10.3); CREATININE 0.8 mg/dL (0.6-1.2); POTASSIUM 3.6 mmol/L (3.5-5.0)
[2022-02-11] MEDS: cephALEXin 250 MG CAPSULE PO SCH (06:38)
--- NOTE | 2022-02-11 07:58 | Discharge Plan ---
Discharge Plan Problem Reviewed?: Yes Disposition: Home, Self Care Condition: Fair Prescriptions: cephALEXin [Keflex] 500 mg PO Q6HR #28 cap amLODIPine [Norvasc] 5 mg PO DAILY #30 tab Diet: Cardiac Activity Restrictions: Activity as Tolerated Shower Restrictions: No Driving Restrictions: No Health Concerns: Your neighbor noticed that you were "not acting right" and you were confused. You have been falling down. You also had an episode of vomiting. So they called the ambulance and EMS brought you in and you had a fever to 104. You we re so dehydrated that your kidneys had mild injury. On examination we found you to have infection of the skin of your right lower extremity. Even though you had a fever, your white cell count was normal. We looked for other sources of infection but your chest xray was negative for pneumonia and your urine was not infected. Plan of Treatment: 1. You responded well to intravenous antibiotics and we changed you to antibiotics by mouth on February 10. You had no worsening of infection and you had no fever. Please complete 7 more days of antibiotics by mouth in the form of Keflex capsules, 1 capsule 4 times a day. 2. Sometimes antibiotics induced diarrhea, please take an [id number] probiotic once a day while you are on antibiotics. 3. Please see your primary care provider, Olivia Pruitt, in follow-up in the next 1 to 2 weeks. 4. While here your blood pressure was elevated. He was started on amlodipine and you were increased to 5 mg daily. Please take that every day. Please see Jesus Pruitt for your blood pressure follow-up in the office as well. Care Goals: To have this current episode of infection of the skin completely resolved and to have your blood pressure under better control. Assessment: Patient has had evaluation for bacteremia where the strep grew in his blood. Echocardiogram was negative. In either case, he states he is going to go home with or without our permission. He promises to follow through with completing his antibiotics and seeing his primary care provider. No Smoking: If you smoke, Please STOP! Call for help. Follow-up with: BRYAN PRUITT ARNP [Primary Care Provider] -
[2022-02-11] MEDS: SACCHAROMYCES BOULARDII 250 MG CAPSULE PO SCH (08:25)
[2022-02-11] MEDS: lamoTRIgine 100 MG TABLET PO SCH (08:25)
[2022-02-11] MEDS: ESCITALOPRAM 10 MG TABLET PO SCH (08:25)
[2022-02-11] MEDS: amLODIPine 5 MG TABLET PO SCH (08:25)
[2022-02-11] MEDS: SODIUM CHLORIDE FLUSH 0.9% 10 ML SYRINGE IVP SCH (08:26)
[2022-02-11 08:35] VITALS: BP 150/63
--- NOTE | 2022-02-11 11:15 | DISCHARGE SUMMARY ---
Discharge Summary Admit Date: 02/06/22 Discharge Date: 02/11/22 Discharging Provider: Soledad Drummond MD Primary Care Provider: Sanna Pruitt Code Status: Do Not Attempt Resuscitation Condition at Discharge: Fair Discharge Disposition: 01 Home, Self Care - DIAGNOSES Discharge Diagnoses with Status of Each Condition: 1. Metabolic encephalopathy due to infection 2. Cellulitis 3. Streptococcal bacteremia 4. Wide-complex tachycardia 5. Hypokalemia 6. Depression 7. Essential hypertension 8. Prerenal azotemia with acute kidney injury - HPI History of Present Illness: This is a 81 y/o white male patient who was brought to the emergency department by EMS for chief complaint of altered mental status for the last couple of days, falls, and fever. The patient's friend Rosa, on whose property he lives, st ates that he "has not been like himself" for the last couple of days. He seems somewhat confused and like he was not as steady on his feet as usual. Rosa called EMS and they were unable to get the stretcher into the patient small cabin, so the patient had to walk downstairs to the stretcher, which she thought he could do. However, while walking, he fell. The medics were able to catch him and he was not injured, but he was not strong enough to continue walking. The medics state they got a temperature in route of 104. His blood sugar was normal. Medics did note the patient vomited in route. The patient denies any specific complaints. He states he feels like he is just cold all the time, but denies any nausea, vomiting, cough, shortness of breath, abdominal pain, or chest pain. He has some swelling of his right lower extremity which he states he has already had evaluated on a couple of occasions and does not have a DVT. He told the ER Provider that the color and size of the leg are at baseline, and denied a sore throat or rhinorrhea. He had no other complaints in the ED. For me, he is sound asleep and does not remain awake enough to complete a sentence. Patient has a history of bipolar disorder and PTSD. He was admitted here 3 months ago for sepsis from C. difficile colitis source. He had multiple electrolyte abnormalities and was orthostatic for many days. He was confused then, when blood pressure was low, and at that admission all his blood pressure medications were discontinued. - Past Medical History Cardiovascular: reports: Hypertension, High cholesterol Respiratory: reports: Asthma, COPD, Other Endocrine/Autoimmune: reports: None GI: reports: hematochezia july 2017 w colonoscopy September 2017 : reports: None HEENT: reports: Other Psych: reports: Bipolar disorder, PTSD, alcoholism Musculoskeletal: reports: None Derm: reports: None MRSA Hx?: No - Past Surgical History General: reports: Colonoscopy - CONSULTS | PROCEDURES Procedures: Head CT is without acute intracranial process. Mild to moderate atrophy and chronic microvascular ischemic changes. Chest x-ray is without acute pulmonary process CT of abdomen and pelvis is without acute abdominal abnormality. No evidence of colitis. Mild to moderate colonic stool distention reflecting constipation. No bowel obstruction. Colonic diverticulosis without diverticulitis. Blood culture by PCR on February 06 positive for strep dysgalac Blood culture in 2 bottles at less than 12 hours positive for strep dysgalac on February 06. Blood culture on February 07 negative Echocardiogram February 10 with left ventricular size normal. Ejection fraction 52%. No regional wall motion abnormalities. Mild to moderate right ventricular enlargement with normal systolic function. Both left and right atria volumes are enlarged. No significant valvular heart disease. Right sided pulmonary pressures normal. - HOSPITAL COURSE Hospital Course: Blood cultures were positive for strep group G. Echocardiogram negative for valvular heart disease. Repeat blood cultures negative. As such she was transitioned to oral antibiotics and has done well for 24 hours and is ready for home. He will be sent home on Keflex for the next 7 days. Blood pressure was elevated during his stay. At home he takes hydrochlorothiazide. We switched him over to Norvasc and he tolerated it well but he wants to discuss this with his primary care provider.As such, even though I have called in prescription for amlodipine he thinks he is can hold off on that until he talks to Eva Sonal. He did have an episode of a wide-complex tachycardia that was without any change in blood pressure or alertness. Electrolytes were checked and supplemented. Echocardiogram was essentially normal for ejection fraction. Exam at discharge is a temperature of 37.7. Heart rate 61. Blood pressure 150/63. He is an alert, thin lanky male who looks stated age at 81. He is 6 foot 1 inches tall, weighs 77.5 kg. Speech patterns are normal. Very charming conversationalist today. This patient can get quite belligerent but is today doing very well. He is only insistence is that he must to go home today he is tired of being here. Neck is supple. Lungs are clear to auscultation and percussion. No increased respiratory effort. Regular rate and rhythm. Abdomen soft, nontender. Extremities lean, lanky In the right leg below the knee has shrunken considerably. He states that his leg has been with venous edema for over a year. When he presented the skin was tense, hot, red. Today it is with wrinkles, no redness, trace edema around the ankles. No skin breakdown. He is ambulating in the room without assistance, is able to transfer from supine to sitting to standing without ataxia or assist. Eating anywhere from 50% to 100% of his food while he was here. Greater than 30 minutes was spent coordinating discharge. Please see separate 20-minute discussion on advance care planning. I have recommended that he wear compression stockings, low to moderate compression. Put them on in the morning when he gets up and take them off at night when he lays down. - ALLERGIES Allergies/Adverse Reactions: Allergies Allergy/AdvReac Type Severity Reaction Status Date / Time No Known Drug Allergies Allergy Verified 10/24/21 12:11 - MEDICATIONS Home Medications: Ambulatory Orders Medication Instructions Recorded Confirmed Tamsulosin HCl [Flomax] 0.4 mg PO DAILY PM 08/27/21 02/07/22 lamoTRIgine [LaMICtal] 100 mg PO BID 08/27/21 02/07/22 Gabapentin [Neurontin] 300 mg PO QPM 10/25/21 02/07/22 Escitalopram [Lexapro] 10 mg PO DAILY 02/07/22 02/07/22 Gabapentin [Neurontin] 300 mg PO HS 02/07/22 02/07/22 Ibuprofen [Motrin] 1 tablet PO TID PRN 02/07/22 02/07/22 hydroCHLOROthiazide [Hydrodiuril] 25 mg PO DAILY 02/07/22 02/07/22 Zinc Oxide 20% Oint [Zinc Oxide] 1 applic TOP PRN PRN each 02/11/22 amLODIPine [Norvasc] 5 mg PO DAILY #30 tab 02/11/22 cephALEXin [Keflex] 500 mg PO Q6HR #28 cap 02/11/22 - LABS Result Diagrams: 02/11/22 06:07 02/11/22 06:07
--- NOTE | 2022-02-11 11:20 | ADVANCE CARE PLANNING NOTE ---
Advance Care Planning - Planning Encounter Date: 02/11/22 Time: 10:30 Purpose: Establish care goals Parties in Attendance: PA Student Natalee Garcia, hospitalist, patient Decisional Capacity of the Patient: Alert, oriented, making his own decisions. - Diagnosis for Encounter (1) Wide-complex tachycardia Summary: Present once during his stay. No symptoms. [place] to be secondary to electrolyte shifts. Echocardiogram shows ejection fraction 52%. Mild to moderate right ventricular enlargement. Systolic function normal. Moderate increase in left atrial volume and left atrial volume index is. No significant valvular heart disease. 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 Educated at [employer]. 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 Through circuitous route he ended up on [facility] when he retired. He was and is now . He lives alone, and is in close contact with his children. He has PTSD, bipolar disorder, and is a recovered alcoholic. He has now been hospitalized in October 2021 and with this admission. With October 2021 he had C. difficile colitis. That was in response to taking antibiotics for a cellulitis over the left olecranon bursa. With this admission he presented as acute metabolic encephalopathy and a fever of 104. Found to have cellulitis of the right lower extremity with blood cultures positive for strep dysgalac. During his stay he did develop an episode of about 12 beats of a wide-complex tachycardia. He does not have any history of cardiac disease. Echocardiogram had an intact left ventricular ejection fraction of 52%. No significant valvular heart disease. He did not have any further arrhythmias. In discussing this diagnosis with him, we spent 20 minutes doing advance care planning conversation in the event that something serious were to happen down the road. He feels like he is still able to live alone and take care of himself. He is active with alcoholics anonymous and has 2 sponsors that came to visit him in the hospital. He also has 2 neighbors that he regards as his dear friends. They check on him every day, annoyingly so (he laughs when he says this). He has 4 children: Power, Mik, Marleny, Kaleb. His ex- is Christen Cleary who is a palliative care PROFESSOR OF ART. He states that all of these 5 people have equal say so as DURABLE POWER OF FACE MAN. Power of real estate associate attorney for financial decisions is Mik. Family has been meeting recently. Although he is doing well independently they feel that his time to have some help for him. Mik will be taking care of all of his financial matters to make sure finances stay stable. They are going to be hiring a non categorical preschool teacher that comes in 2 days a week to clean the house. They are signing him up for daily Meals on Wheels. Although they are not currently hiring any permanent caregivers that would come on a daily basis, that is being investigated for down the road. Right now the patient states that he has adequate supervision between his children, his ex-, his sponsors, and the 2 neighbors. He states that he is a DO NOT RESUSCITATE. All of that is in place with the family and an advanced directive. We discussed in general terms what he wants us to do in certain scenarios. I used this admission as an example. He presented with acute metabolic encephalopathy from a infection and a high fever. If he had gone on to progress to full septic shock, unresponsive to our antibiotics and fluid resuscitation, did he want us to intubate him, do CPR, etc? He states no. A second scenario was postulated. Say he had deteriorated over time due to normal aging and cognitive decline. I described his being completely dependent on others to bring him food, help him bathe, but he was still ambulatory and able to interact. He states that in those circumstances, he also would not want to be kept alive. If he had become dependent on people to help him just live his life with simple matters of bathing, feeding, dressing, he did not want to be alive. If the moment were to come that he had to go to the hospital because of a hip fracture, septic shock, AND he was that disbabled, he wants us to let him go. No surgery, dialysis, procedures. If is an easily treatable, reversible illness not requiring surgery or procedures, we would be allowed to treat him. Objective/Medical Story: 1 bipolar disorder and PTSD 2. Diverticulosis 3. Hyperlipidemia 4. Chronic asthma with COPD 5. Cataracts 6. Osteoarthritis, spine 7. Anal fissures 8. Hematochezia July 2017. Repeat colonoscopy done. 9. Tubular adenoma of colon, removed 2015 10. Alcoholism Past surgical history: 1. Colonoscopy December 2012, 2014, September 2017 2. Cataract extraction with lens implantation He has now been hospitalized in October 2021 and with this admission. With October 2021 he had C. difficile colitis. That was in response to taking antibiotics for a cellulitis over the left olecranon bursa. With this admission he presented as acute metabolic encephalopathy and a fever of 104. Found to have cellulitis of the right lower extremity with blood cultures positive for strep dysgalac.Echocardiogram without significant valvular heart disease. Repeat blood cultures negative. Patient is anxious to go home. Alert, oriented. Has been changed to oral antibiotics and has no recurrence of fever. Exam shows resolution of cell ulitis. Goals of Care: To remain independent at home for as long as possible. He really would prefer to stay at home if he becomes cognitively impaired and would like to be taken care of by caregivers and family and neighbors. He would like to at home. Plan: At this time he will be no change in his plans. I told him that I think he and his family are doing wonderful planning. He is in a support group with AA. His neighbors and family come by frequently and discuss things honestly. They have plans for the future for taking care of him as he needs more help. They have plans for his finances through one of his sons. Will note in chart that he is a DO NOT RESUSCITATE Code Status: Do Not Attempt Resuscitation Time spent on advance care plannin minutes
== END 2022-02-11 10:50 | disposition home or self-care (01) | DRG 71 ==
LOC: EDUNIT# → ED 10:30 → MS2 17:22 → OBSVTOIN 02-07 07:24
PROVIDERS: ADMIT Internal Medicine; ATTEND Specialist
DX: R41.0 Disorientation, unspecified (principal); G93.41 Metabolic encephalopathy; R50.9 Fever, unspecified; I47.2 Ventricular tachycardia; L03.115 Cellulitis of right lower limb; R00.0 Tachycardia, unspecified; Z20.822 Contact with and (suspected) exposure to COVID-19; N17.9 Acute kidney failure, unspecified; R78.81 Bacteremia; E87.6 Hypokalemia; I10 Essential (primary) hypertension; E78.00 Pure hypercholesterolemia, unspecified; J44.9 Chronic obstructive pulmonary disease, unspecified; F31.9 Bipolar disorder, unspecified; F43.10 Post-traumatic stress disorder, unspecified; Z79.899 Other long term (current) drug therapy
CPT/HCPCS: 36415; 70450; 71045; 74176; 80048; 80053; 80202; 80306; 81001; 83605; 83690; 83735; 84484; 85025; 87040; 87150; 87181; 87633; 93005; 93306; 96361; 96365; 96366; 96368; 96375; 97161; 97165; 99285; A6250; A9270; G0480; J3370; 80320; 81003; 87086

== ENCOUNTER 2023-01-06 08:52 | Day surgery (SDC) | payer MEDICARE ==
[2023-01-06] MEDS ORDERED: LACTATED RINGERS 1,000 ML IV ONE (09:01)
--- NOTE | 2023-01-06 09:41 | ANESTHESIA ---
Pre-Anesthesia VS, & Labs - Diagnosis screening, + cologuard - Procedure colonoscopy Vital Signs: Temp Pulse Resp BP Pulse Ox O2 Flow Rate 36.2 C L 76 18 163/95 H 96 01/06/23 09:13 01/06/23 09:13 01/06/23 09:13 01/06/23 09:13 01/06/23 09:13 Height: 6 ft 1 in Weight (kg): 88.6 kg Body Mass Index: 25.7 BMI Classification: Overweight - NPO >8 hours - Lab Results Lab results reviewed: Yes Home Medications and Allergies Home Medications: Ambulatory Orders Losartan [Cozaar] 25 mg PO DAILY 01/06/23 Meloxicam 15 mg PO DAILY 01/06/23 Rosuvastatin Calcium [Crestor] 10 mg PO DAILY 01/06/23 Tamsulosin HCl [Flomax] 0.4 mg PO DAILY PM 08/27/21 lamoTRIgine [LaMICtal] 100 mg PO BID 08/27/21 Gabapentin [Neurontin] 600 mg PO BID 02/07/22 hydroCHLOROthiazide [Hydrodiuril] 25 mg PO DAILY 02/07/22 Losartan [Cozaar] 25 mg PO DAILY 01/06/23 Meloxicam 15 mg PO DAILY 01/06/23 Rosuvastatin Calcium [Crestor] 10 mg PO DAILY 01/06/23 Allergies/Adverse Reactions: Allergies Allergy/AdvReac Type Severity Reaction Status Date / Time No Known Drug Allergies Allergy Verified 01/06/23 09:13 Anes History & Medical History - Anesthetic History Anesthesia Complications: reports: No previous complications Family history of Anesthesia Complications: Denies Family history of Malignant Hyperthermia: Denies - Medical History Cardiovascular: reports: Hypertension, High cholesterol Pulmonary: reports: COPD Gastrointestinal: reports: Colon polyps Urinary: reports: None, Benign prostate hypertrophy Musculoskeletal: reports: None Endocrine/Autoimmune: reports: None Skin: reports: None Smoking Status: Never smoker Psychosocial: reports: Alcohol - Surgical History General: reports: Colonoscopy, Other Eyes Ears Nose Throat (EENT): reports: Detached retina repair Exam General: Alert, Oriented x3, Cooperative Dental: WNL Mouth Openin Fingerbreadth Neck Mobility: Normal Mallampati classification: II Thyromental Distance: 4-6 cm Respiratory: Lungs clear Cardiovascular: Regular rate Plan Anesthesia Type: General, MAC Consent for Procedure(s) Verified and Reviewed: Yes Code Status: Attempt Resuscitation ASA classification: 2-Mild systemic disease Is this case an emergency?: Yes
[2023-01-06] MEDS ORDERED: PROPOFOL 500 MG/50 ML 500 MG/50 ML VIAL ONE (10:21)
[2023-01-06] MEDS ORDERED: LACTATED RINGERS 750 ML IV ONE (10:44)
[2023-01-06 11:02] VITALS: BP 115/78; O2SAT 97
--- NOTE | 2023-01-06 11:36 | ANESTHESIA POST OP EVALUATION ---
Anesthesia Post Eval - Post Anesthesia Eval Vitals: Last Vital Signs Temp 36.5 C 01/06/23 10:44 Pulse 64 01/06/23 10:56 Resp 16 01/06/23 10:56 BP 115/78 01/06/23 10:56 Pulse Ox 97 01/06/23 10:56 O2 Flow Rate CV Function Including HR & BP: Stable Pain Control: Satisfactory Nausea & Vomiting: Negative Mental Status: Baseline Respiratory Status: Airway Patent Hydration Status: Satisfactory Anesthesia Complications: None
== END 2023-01-06 08:53 | disposition home or self-care (01) ==
LOC: SDS 08:52
PROVIDERS: ATTEND Surgery
DX: Z12.11 Encounter for screening for malignant neoplasm of colon (principal); R19.5 Other fecal abnormalities; K57.30 Diverticulosis of large intestine without perforation or abscess without bleeding; K64.1 Second degree hemorrhoids; I10 Essential (primary) hypertension; J43.9 Emphysema, unspecified; F17.200 Nicotine dependence, unspecified, uncomplicated; Z86.018 Personal history of other benign neoplasm
CPT/HCPCS: G0121; J7120

== ENCOUNTER 2023-02-23 14:47 | Outpatient (CLI) | payer MEDICARE ==
[2023-02-23 14:56] LABS: BASOPHILS % (AUTO) 0.2 %; EOSINOPHILS # (AUTO) 0.1 10^3/uL (0.0-0.7); HCT - HEMATOCRIT 26.6 % (42.0-52.0); HGB - HEMOGLOBIN 8.9 g/dL (14.0-18.0); LYMPHOCYTES # (AUTO) 0.8 10^3/uL (1.5-3.5); MEAN CORPUSCULAR HEMOGLOBIN 33.3 pg (27.0-31.0); MEAN CORPUSCULAR HGB CONC 33.5 g/dL (32.0-36.0); MEAN CORPUSCULAR VOLUME 99.6 fL (80.0-94.0); MEAN PLATELET VOLUME 8.9 fL (7.4-11.4); MONOCYTES # (AUTO) 0.3 10^3/uL (0.0-1.0); MONOCYTES % (AUTO) 5.8 %; NEUTROPHILS # (AUTO) 3.4 10^3/uL (1.5-6.6); NEUTROPHILS % (AUTO) 74.8 %; PLT - PLATELET COUNT 549 10^3/uL (130-450); RED BLOOD COUNT 2.67 10^6/uL (4.70-6.10); RED CELL DISTRIBUTION WIDTH 12.5 % (12.0-15.0); WHITE BLOOD COUNT 4.5 x10^3/uL (4.8-10.8)
[2023-02-23 15:17] LABS: ALBUMIN 3.5 g/dL (3.2-5.5); BILIRUBIN,TOTAL 0.3 mg/dL (0.2-1.0); CALCIUM 10.5 mg/dL (8.5-10.3); CREATININE 1.1 mg/dL (0.6-1.3); CRP - C-REACTIVE PROTEIN 1.4 mg/dL (<0.5); POTASSIUM 3.7 mmol/L (3.5-4.5); TOTAL PROTEIN 6.9 g/dL (6.4-8.9)
== END 2023-02-23 14:48 | disposition home or self-care (01) ==
LOC: LAB.R 14:47
PROVIDERS: ATTEND Registered Nurse
DX: I10 Essential (primary) hypertension (principal); T84.53XD Infection and inflammatory reaction due to internal right knee prosthesis, subsequent encounter
CPT/HCPCS: 80053; 85025; 85651; 86140

== ENCOUNTER 2023-03-10 15:39 | Outpatient (CLI) | payer MEDICARE ==
[2023-03-10 15:51] LABS: BASOPHILS % (AUTO) 0.2 %; EOSINOPHILS # (AUTO) 0.2 10^3/uL (0.0-0.7); HCT - HEMATOCRIT 27.6 % (42.0-52.0); HGB - HEMOGLOBIN 9.4 g/dL (14.0-18.0); LYMPHOCYTES # (AUTO) 0.6 10^3/uL (1.5-3.5); LYMPHOCYTES % (AUTO) 15.3 %; MEAN CORPUSCULAR HEMOGLOBIN 32.6 pg (27.0-31.0); MEAN CORPUSCULAR HGB CONC 34.1 g/dL (32.0-36.0); MEAN CORPUSCULAR VOLUME 95.8 fL (80.0-94.0); MEAN PLATELET VOLUME 9.2 fL (7.4-11.4); MONOCYTES # (AUTO) 0.2 10^3/uL (0.0-1.0); MONOCYTES % (AUTO) 5.4 %; NEUTROPHILS % (AUTO) 73.6 %; PLT - PLATELET COUNT 225 10^3/uL (130-450); RED BLOOD COUNT 2.88 10^6/uL (4.70-6.10)
[2023-03-10 16:08] LABS: ALBUMIN 3.7 g/dL (3.2-5.5); ALBUMIN/GLOBULIN RATIO 1.2 (1.0-2.2); ALKALINE PHOSPHATASE 73 IU/L (42-121); ALT ALANINE AMINOTRANSFERASE 3 IU/L (10-60); AST ASPARTATE AMINOTRANSFERASE 19 IU/L (10-42); BILIRUBIN,TOTAL 0.3 mg/dL (0.2-1.0); BUN - BLOOD UREA NITROGEN 23 mg/dL (6-20); CALCIUM 9.3 mg/dL (8.5-10.3); CARBON DIOXIDE - CO2 26 mmol/L (21-32); CHLORIDE 102 mmol/L (101-111); CREATININE 1.2 mg/dL (0.6-1.3); CRP - C-REACTIVE PROTEIN < 0.5 mg/dL (<0.5); GFR - MDRD 58 (>89); GLUCOSE 101 mg/dL (74-104); SODIUM 133 mmol/L (135-145); TOTAL PROTEIN 6.9 g/dL (6.4-8.9)
== END 2023-03-10 15:40 | disposition home or self-care (01) ==
LOC: LAB.R 15:39
PROVIDERS: ATTEND Registered Nurse
DX: T84.53XD Infection and inflammatory reaction due to internal right knee prosthesis, subsequent encounter (principal)
CPT/HCPCS: 80053; 85025; 85651; 86140

== ENCOUNTER 2023-08-05 07:00 | Outpatient (CLI) | payer MEDICARE ==
[2023-08-05 16:24] LABS: CC,BF RBC 36000 /mm^3; CC,BF WBC 171624 /mm^3
[2023-08-05 16:25] LABS: BF CLARITY TURBID; BF COLOR YELLOW; BF SOURCE SYNOVIAL
[2023-08-05 16:30] LABS: LYMPHOCYTES %,BODY FLUID 4 %; MACROPHAGES %,BODY FLUID 7 %; NEUTROPHILS %, BF 89 %
== END 2023-08-05 23:59 | disposition home or self-care (01) ==
LOC: LAB.S 07:00
PROVIDERS: ATTEND Emergency Medicine
DX: M00.9 Pyogenic arthritis, unspecified (principal)
CPT/HCPCS: 87070; 87181; 87205; 89051

== ENCOUNTER 2023-08-05 20:57 | Outpatient (CLI) | payer MEDICARE | END 2023-08-05 20:58 | disposition short-term general hospital (02) | LOC: EMS 20:57 | DX: A41.9 Sepsis, unspecified organism (principal); Z96.651 Presence of right artificial knee joint | CPT/HCPCS: A0425; A0427 ==

== ENCOUNTER 2023-11-02 08:00 | Outpatient (CLI) | payer MEDICARE ==
[2023-11-02 20:06] LABS: BASOPHILS % (AUTO) 0.3 %; EOSINOPHILS # (AUTO) 0.1 10^3/uL (0.0-0.7); EOSINOPHILS % (AUTO) 4.8 %; HCT - HEMATOCRIT 32.9 % (42.0-52.0); HGB - HEMOGLOBIN 10.8 g/dL (14.0-18.0); LYMPHOCYTES # (AUTO) 0.6 10^3/uL (1.5-3.5); LYMPHOCYTES % (AUTO) 20.7 %; MEAN CORPUSCULAR HEMOGLOBIN 34.6 pg (27.0-31.0); MEAN CORPUSCULAR HGB CONC 32.8 g/dL (32.0-36.0); MEAN CORPUSCULAR VOLUME 105.4 fL (80.0-94.0); MONOCYTES # (AUTO) 0.3 10^3/uL (0.0-1.0); MONOCYTES % (AUTO) 8.5 %; NEUTROPHILS # (AUTO) 1.9 10^3/uL (1.5-6.6); NEUTROPHILS % (AUTO) 65.4 %; PLT - PLATELET COUNT 191 10^3/uL (130-450); RED BLOOD COUNT 3.12 10^6/uL (4.70-6.10); RED CELL DISTRIBUTION WIDTH 16.1 % (12.0-15.0); WHITE BLOOD COUNT 2.9 x10^3/uL (4.8-10.8)
[2023-11-02 20:11] LABS: SLIDE REVIEW? Indicated
[2023-11-02 21:25] LABS: DIFFERENTIAL COMMENT MANUAL=AUTO DIFF; PLATELET ESTIMATE, MANUAL NORMAL (130-450,000) (NORMAL); PLATELET MORPHOLOGY NORMAL APPEARANCE (NORMAL)
== END 2023-11-02 23:59 | disposition home or self-care (01) ==
LOC: LAB.S 08:00
PROVIDERS: ATTEND Internal Medicine Infectious Disease
DX: M00.061 Staphylococcal arthritis, right knee (principal)
CPT/HCPCS: 36415; 85025

== ENCOUNTER 2023-11-08 12:34 | Outpatient (CLI) | payer MEDICARE ==
--- NOTE | 2023-11-08 14:07 | Ultrasound Report ---
PROCEDURE: Duplex Ext Veins Right INDICATIONS: LWER EXT EDEMA TECHNIQUE: Real-time imaging, as well as color and pulse Doppler interrogation, were performed of the lower extr emity deep veins from the inguinal ligament to the popliteal fossa. Attempted visualization of the ca lf veins was performed. COMPARISON: None. FINDINGS: The deep veins are normally compressible, and free of intraluminal thrombus. Color and pu lse Doppler demonstrate normal phasic intraluminal flow. There is normal augmentation response to di stal compression maneuver. Moderate lower extremity edema. IMPRESSION: No deep venous thrombosis of the visualized lower extremity. Agree with preliminary interpretation provided to the ordering provider by the ultrasound technologis t. Reviewed by: Celestino Avila MD on 11/08/2023 2:06 PM PDT Approved by: Celestino Avila MD on 11/08/2023 2:06 PM PDT Station ID: [id number]
== END 2023-11-08 12:35 | disposition home or self-care (01) ==
LOC: DI 12:34
DX: R60.0 Localized edema (principal)